=== PATIENT | male | born 1955 | race Caucasian/White ===

== ENCOUNTER 2016-12-19 08:21 | Emergency (ER) | payer MEDICARE, MEDICAID ==
[~2016-12-19] VITALS: Ht 175.3 cm; Wt 74.8 kg
[~2016-12-19 08:21] MED LIST: ASPIRIN 325MG325 MG PO; ASPIRIN 81MG TA81 MG PO; CIPRO 500MG TA500 MG PO; CLOPIDOGREL75 M2 PO; DIAZEPAM2 MG PO; DICLOFENAC 50MG50 MG PO; ERY-TAB 250MG250 MG PO; FLAGYL 500MG.500 MG PO; HYDROCO/APAP TAB 5-3 PO; HYDROCODONE-APA1 TA1 PO; HYDROCODONE-APA1 TA2 PO; IBU600 MG PO; KEFLEX 500MG.500 MG PO; LIPITOR80 M1 PO; LISINOPRIL2.5 M1 PO; LORTAB 5/500 501 TAB PO; MEDROL 4MG. DOSE4 MG PO; METOPROLOL25 MG PO; MOBIC7.5 MG PO; NITROGLYCERIN0.4 M1 SL; NOMEDS *; PROAIR HFA0.09 MG/AC IH; PROVENTIL0.09 MG/A1 IH; VALIUM 5MG TABLE5 MG PO; VENTOLIN H0.09 MG/AC IH; VOLTAREN75 MG PO; ZITHROMAX Z-PA250 M1 PO
[2016-12-19] MEDS ORDERED: PROAIR HFA0.09 MG/AC IH (08:32)
[2016-12-19] MEDS ORDERED: LEVOTHYROXIN0.025 M1 PO (08:34)
[2016-12-19] MEDS ORDERED: OMEPRAZOLE20 MG PO (08:35)
[2016-12-19] MEDS ORDERED: AMITRIPTYLINE 225 MG PO (08:37)
[2016-12-19] MEDS ORDERED: GABAPENTIN100 MG PO (08:38)
[2016-12-19 08:58] LABS: LYMPH # 4.1 K/mm3 (0.7-4.5); LYMPH % 41.9 % (10-50)
[2016-12-19 09:02] LABS: HEMOGLOBIN 16.7 g/dL (14.1-18.0)
--- NOTE | 2016-12-19 09:06 | Emergency Room Report ---
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 N Clinical Suspician of Infection? N Mental Status: 1 - Regular (Normal Baseline) Sepsis Risk:Low Sepsis Risk Have you (or family members/close friends) recently traveled outside the [place]? N If Yes, where/when: Have you had exposure to infectious disease within the past month? N TB? Other? Specify: Patient feeling lightheaded when standing since getting up this morning. No fever, no vomiting, no syncope, no chest pain, no congestion; baseline strabismus on right since childhood; takes Plavix and aspirin for hx stents. No palpitations. PCP is Dr. Batista, and patient no longer receiving Lortab from his PCP for chronic pain syndrome. He has not been to see his PCP since that time, and is currently not taking his daily medications. ALLERGIES Coded Allergies: Penicillins (12/19/16) Home Medications Active Scripts Nitroglycerin 0.4 MG SL Q5MINP 10 Days Prov: 10/18/14 Reported Medications ASPIRIN (Aspirin) 81 MG PO DAILY ATORVASTATIN CALCIUM (Lipitor 80MG) 80 MG PO QHS Metoprolol Tartrate (Metoprolol) 25 MG PO BID Lisinopril 2.5 MG PO DAILY Albuterol Sulfate (Proair Hfa) 1 PUFF IH Q6HP PRN COPD #9 Levothyroxine Sodium (Levothyroxine 0.025MG) 0.025 MG PO DAILY 30 Days Omeprazole (Omeprazole 20MG) 20 MG PO DAILY 30 Days Amitriptyline Hcl (Amitriptyline) 25 MG PO QHS 30 Days Gabapentin (Gabapentin 100MG) 100 MG PO QHS 30 Days CLOPIDOGREL BISULFATE (Clopidogrel) 75 MG PO DAILY #90 History Medical History General CAD? No Angina: Yes MO: Yes Hypertension? Yes Hyperlipidemia? Yes CHF? No DVT? No PE? No COPD? No Asthma? Yes Anemia? No GERD? No Gastric ulcers? No GI Bleed? No Hernia? No Thyroid Problems? No Hypothyroidism? No CVA? No Seizures? No Diabetes? No Insulin Dependent: No Insulin Pump: No Home FSBS? No Renal Insuffiency? No End Stage Renal Disease? No UTI? No Stones? No BPH? No GB Disease: No Nephritic Syndrome? No Asplenia? No Hepatitis? No Sickle Cell Disease? No Arthritis? No Migraines? No Cataracts? No Glaucoma? No MRSA? No HIV? No TB? No Anxiety? No Depression? No Cancer? No More? No Immunization Hx DT/Tetanus 1-4 YRS Surgical Hx Previous Surgery?Y RIGHT EYE LHAND SURGERY FROM INJURY CARDIAC STENTS X 2 Family History Family Hx Diabetes Yes CAD Yes Hypertension Yes Hyperlipidemia Yes Cancer Yes TB Yes Social History Smoking Hx Smoker: Current Every Day Smoker Tobacco: Yes Type Cigarettes Packs/day < 1 Pack Alcohol Alcohol: No Review of Systems All Other Systems Reviewed and Negative Psychiatric/Neurological see HPI, pre-existing deficit Physical Exam Vital Signs Vital Signs Date Time Temp Pulse Resp B/P Pulse O2 O2 Flow FiO2 Ox Delivery Rate 12/19 0941 69 159/92 12/19 0941 61 145/83 12/19 0940 69 24 159/92 97 12/19 0823 97.8 76 24 154/94 95 General Appearance normal appearance, WD/WN, no apparent distress Eye Exam - bilateral eye normal exam (baseline strabismus, R eye), bilateral eye PERRL, bilateral eye EOMI Ear, Nose, Throat hearing grossly normal, normal ENT inspection, normal pharynx (mostly edentulous ) Neck normal inspection, non-tender, supple, full range of motion Respiratory Status Yes: trachea midline, chest symmetrical, non tender chest. No: respiratory distress, tender on palpation, use of accessory muscles, pain on inspiration, pain on expiration, productive cough, non productive cough. Lung Sounds bilateral: normal breath sounds, lungs clear. 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 No Results/Orders Laboratory Tests 12/19/16 1000: Urine Color YELLOW, Urine Appearance CLEAR, Urine pH 6.0, Ur Specific [place] 1.020, Urine Protein NEGATIVE, Urine Ketones NEGATIVE, Urine Blood NEGATIVE, Urine Nitrate NEGATIVE, Urine Bilirubin NEGATIVE, Urine Urobilinogen 0.2, Ur Leukocyte Esterase NEGATIVE, Urine WBC 3-5, Ur Squamous Epith Cells 3-5, Urine Bacteria 1+, Urine Mucus 3+, Urine Glucose NEGATIVE 12/19/16 0805: Sodium 139, Potassium 3.7, Chloride 103, Carbon Dioxide 25, BUN 16, Creatinine 1.2, Estimated Creat Clear 68, Estimated GFR (MDRD) 62, Glucose 138 H, Calcium 9.0, Total Bilirubin 0.3, AST 15, ALT 19, Alkaline Phosphatase 103, Troponin I < 0.02, Total Protein 8.0, Albumin 4.0, Globulin 4.0 H, Albumin/Globulin Ratio 1.0 L, WBC 9.8, RBC 5.90, Hgb 16.7, Hct 49.8, MCV 84.5, RDW 12.8, Plt Count 273 , MPV 7.6, Gran % 47.5, Gran # 4.7, Lymphocytes % 41.9, Monocytes % 5.7, Eosinophils % 4.0, Basophils % 0.9, Lymphocytes # 4.1, Monocytes # 0.6, Eosinophils # 0.4, Basophils # 0.1, PUBS MCHC 33.5, MCH 28.3 Current Medication Orders Sig/Darvin Start time Last Medication Dose Route Stop Time Status Admin Sodium Chloride 1,000 ML .STK-MED ONE 12/19 854 DC IV Sodium Chloride 10 ML PRN PRN 12/19 844 AC IV 12/20 840 Sodium Chloride 1,000 ML .Q8H 12/19 844 AC 12/19 IV 12/19 Sodium Chloride 10 ML PRN PRN 12/19 844 AC IV 12/20 842 Orders Procedure Date/time Status DIET-NOTHING BY MOUTH 12/19 L Active ELECTROCARDIOGRAM REQUEST 12/[address] HEAD REQ 12/19 841 Complete IV SALINE LOCK 12/19 841 Active ORTHOSTATIC B/P 12/19 841 Active URINALYSIS/COMPLETE 12/19 841 Complete TROPONIN I 12/19 841 Complete CBC WITH AUTO DIFF 12/19 841 Complete CHEM 12 PROFILE 12/19 841 Complete CM/EKG CM/EKG EKG rate, NSR, rhythm, no evid. of ischemic chgs, no ectopy, normal QRS, normal [place], normal EKG (poor R w prog seen 10/28/16) XRAY/CT/US XRAY/CT/US XRAY chest XR interpretation by reviewed by me (report reviewed) Xray Results normal/NAD, no infiltrates (old granulomatous changes), normal lung inflation abhi CT head CT interpretation by reviewed by me, discussed w/radiologist (t/c from radiologist) Time results known: 913 CT Results normal/NAD (chronic mastoiditis ), frontal atrophy Departure Departure Time of Disposition 1022 Disposition DC Home or Self Care(routine) Clinical Impression Primary Impression: Mastoiditis Qualifiers: Laterality: unspecified laterality Qualified Code: H70.90 - Unspecified mastoiditis, unspecified ear Condition STABLE Referrals Lester KIRKLAND,Ashok Philip (PCP/Family) Patient Instructions DI for Mastoiditis -- Child Additional Instructions Levaquin; see Dr. Batista or one of his nurse practititioners in one week for recheck and for med refills as determined by your PCP. Discharge Counseling Counseled pt/family regarding diagnosis, test results, medications/RX, home care, follow up needs Prescriptions Current Visit Scripts Levofloxacin (Levaquin 500MG) 500 MG PO DAILY #7 TAB ED Critical Care Critical Care No at 1026
[2016-12-19 09:08] LABS: BUN 16 mg/dL (7-18)
[2016-12-19 09:09] LABS: GFR (ESTIMATED) 62 ML/MIN (>60)
--- NOTE | 2016-12-19 09:18 | RADIOLOGY REPORT PS360 ---
CT HEAD W/O CONTRAST COMPARISON: CT scan of brain noncontrast 01/03/2015 HISTORY: Patient woke up dizzy this a.m. TECHNIQUE: Multiaxial scans obtained from base skull to the vertex and were performed without IV contrast. FINDINGS: The base of skull normal except for findings of chronic mastoiditis left side. The internal auditory canals appear normal bilaterally. The ventricular system is normal. The sylvian fissures are somewhat prominent in the cortical sulci are prominent over the frontal lobes. There is no ischemic infarct or bleed and there are no extra-axial fluid collections. The bony calvarium appears intact. IMPRESSION: Findings of mild bifrontal cortical atrophy basely unchanged the previous exam, no acute intracranial pathology noted
--- NOTE | 2016-12-19 09:25 | RADIOLOGY REPORT PS360 ---
CHEST(2 VIEWS-NOT PORTABLE) COMPARISON: Portable upright chest 10/28/2016 HISTORY: Dizziness TECHNIQUE: PA and lateral chest FINDINGS: There is borderline emphysematous changes with mild hyperexpansion lung perez. I see no infiltrate. There are calcified hilar nodes bilaterally and there are a couple of calcified right granulomata in right perihilar region. Cardiac size is normal and the vascularity is normal. 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
[2016-12-19 10:07] LABS: URINE BILIRUBIN - DIPSTICK NEGATIVE (NEG); URINE BLOOD NEGATIVE (NEG)
[2016-12-19] MEDS ORDERED: LEVAQUIN500 MG PO (10:25)
[2016-12-19 11:17] VITALS: BP 159/92
--- OUTSIDE RECORDS SUMMARY | 2016-12-21 19:33 | External Medical Summary Rpt ---
Author Author , BAHMAN Lennon BAHMAN Address Unknown Phone [email or web address] Team Providers Care Commodities Broker Name Role Phone HILARIO DOUGLAS, Unavailable Unavailable HILARIO DOUGLAS BAILEY Unavailable Unavailable AMARIS LAIRD Unavailable Unavailable MAGI ALTAMIRANO MD, Unavailable Unavailable LISANDRA ALTAMIRANO MD [facility] Unavailable Unavailable [facility], [facility] JOSE FIORE, Unavailable Unavailable JOSE FIORE [facility] Jose Breen MD, Unavailable Unavailable LEANDRO Clark MD Unavailable Unavailable JR BRAVO ROE, Unavailable Unavailable JR BRAVO DURAN GAINEY Unavailable Unavailable LOUISA JERONIMO GIL, Unavailable Unavailable JERONIMO GIL [facility] Unavailable Unavailable INC, [facility] Unavailable Unavailable HOSPITAL P, [facility], Unavailable Unavailable [facility] Unavailable Unavailable [facility], [facility] Unavailable Unavailable MEDICAL G, [facility] CORBY TAVAREZ JR, JR Unavailable Unavailable CORBY HENDERSON DWI, CORBY Unavailable Unavailable JR DWI JAVIER ROBERT, Unavailable Unavailable JAVIER ROBERT [facility], Unavailable [facility]available [facility], [facility] SCIFRES ANG, SCIFRES Unavailable Unavailable ANG KARLA MAT, Unavailable Unavailable KARLA MAT SOKAN, HILLARY O, Unavailable Unavailable SOKAN, HILLARY O SOTINGEANU, Unavailable Unavailable JUNOU TAMMI MCFARLAND, Unavailable Unavailable TAMMI MCFARLAND Continuity of Care Document - 06-18-2007 through 2016 Problems Code Diagnosis DOS Provider Status I10 ESSENTIAL 10-28-2016 [facility]YPERTEN[facility] N I252 OLD 10-28-2016 [facility] MYOCARDIAL [facility] P R0602 SHORTNESS 10-28-2016 [place] [facility] R071 CHEST PAIN 10-28-2016 [facility], BREATHING [facility] R079 CHEST PAIN 10-28-2016 [place] [facility] Z720 TOBACCO USE 10-28-2016 [facility] P Z8249 FAMILY HX 10-28-2016 [facility] ISCHEMIC [facility] HRT DZ OTH INC DZ CIRC SYSTEM E785 HYPERLIPIDE 10-09-2016 [facility]IO [facility] UNSPECIFIED INC I119 HYPERTENSIV 10-09-2016 [facility] E HEART [facility] DISEASE INC WITHOUT HEART FAILURE I209 ANGINA 10-09-2016 [facility]IS [facility] UNSPECIFIED INC I2510 A[facility]D [place] 10-09-2016 [facility] CORONARY [facility] ARTERY W/O INC ANGINA [place] [id number] PINGUECULIT 02-24-2016 [facility] R5383 OTHER 12-21-2015 [facility] FATIGUE [facility] INC I208 OTHER FORMS 12-20-2015 [facility] OF ANGINA [facility] [place] INC M1990 UNSPECIFIED 09-07-2015 [facility] OSTEOARTHRI GROUP TIS UNSPECIFIED SITE M545 LOW BACK 09-07-2015 [facility] PAIN PHYSIC[facility]ANS GROUP N23013 OTHER LONG 09-07-2015 [facility] TERM [facility] CURRENT INC DRUG THERAPY I422 OTHER 07-08-2015 [facility] HYPERTROPHI [facility] C INC CARDIOMYOPA THY I5020 UNSPECIFIED 07-08-2015 [facility] SYSTOLIC [facility] CONGESTIVE INC HEART FAILURE 49607 UNSPEC HTN 01-04-2015 [facility] DISEASE [facility] WITHOUT O HEART FAIL 412 OLD 01-04-2015 [facility] MYOCARDIAL [facility] INFARCTION [facility] O 31396 COR 01-04-2015 [facility] ATHEROSLERO LAR UNSPEC CONSULTANTS TYPE VESSEL O [place] T 4254 OTHER 01-04-2015 [facility] PRIMARY LAR CARDIOMYOPA CONSULTANTS [place] O 2724 OTHER AND 11-24-2014 [facility] UNSPECIFIED [facility] INC HYPERLIPIDE MARIO 4280 CONGESTIVE 11-24-2014 [facility] HEART [facility] FAILURE INC UNSPECIFIED 4019 UNSPECIFIED 10-20-2014 [facility] ESSENTIAL [facility] HYPERTENSIO INC N 4139 OTHER AND 10-20-2014 [facility] UNSPECIFIED [facility] ANGINA INC [place] 496 CHRONIC 10-18-2014 [facility], OBSTRUCTION [facility] NEC 19909 ESOPHAGEAL 10-18-2014 [place] REFLUX [facility] P 25294 CHEST PAIN 10-18-2014 [facility] UNSPECIFIED [facility]YSICIANS, [facility] 30121 OTHER CHEST 10-18-2014 [facility] 7862 COUGH 09-13-2014 [facility] 97599 CORONARY 06-30-2014 [facility] [place] [facility] CORONARY ARTERY 69376 UNSPECIFIED 06-30-2014 [facility] HEART MEDICAL G FAILURE 4149 UNSPECIFIED 05-04-2014 [facility] CHRONIC PHYSICIANS ISCHEMIC GROUP HEART DISEASE 3674 PRESBYOPIA 03-12-2014 [facility] 63674 UNSPECIFIED 03-12-2014 [facility] 2449 UNSPECIFIED 03-05-2014 [facility] HYPOTHYROID INC ISM 7231 CERVICALGIA 02-12-2014 [facility] INC 7242 LUMBAGO 02-12-2014 [facility] INC 71008 DIAB W/O 02-04-2014 [facility] COMP TYPE [facility] II/UNS NOT INC STATED UNCNTRL 2859 UNSPECIFIED 02-04-2014 [facility] ANEMIA [facility] INC 99214 OSTEOARTHRO 08-19-2013 [facility] S UNSPEC PHYSICIANS WHETHER GROUP GEN/LOC UNSPEC SITE 0539 HERPES 06-10-2013 [facility]ER PHYS[facility]IANS WITHOUT GROUP MENTION OF COMPLICATIO N 1101 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 Hospital 401.9 401.9 05-15-2013 [place] HYPERTENSIO [facility] NOS Hospital 493.90 493.90 05-15-2013 [place] ASTHMA, [facility] UNSPECIFIED Hospital 521.00 521.00 05-15-2013 [place] UNSPEC [facility] DENTAL Hospital CARIES 786.59 786.59 10-30-2012 [place] CHEST PAIN [facility] 49192 UNSPECIFIED 12-19-2010 [facility] SITE OF [facility] ANKLE INC SPRAIN AND STRAIN 8830 OPEN WOUND 08-30-2009 [facility]ER [facility] WITHOUT INC MENTION COMPLICATIO N 93547 ASTHMA 02-04-2009 VENANCIO DOUGLAS WITH STATUS ASTHMATICUS 7245 UNSPECIFIED 02-04-2009 ARNOLD, BACKACHE HILARIO W 39956 ABDOMINAL 11-26-2008 [place] [facility] UNSPECIFIED [facility] 30224 UNSPECIFIED 09-30-2008 [place] [facility] 56204 ACUTE 09-30-2008 [facility] GINGIVITIS [facility] PLAQUE INC INDUCED 5269 UNSPECIFIED 09-30-2008 [place] DISEASE OF EMERGENCY [facility] 4660 ACUTE 04-09-2008 [facility] BRONCHITIS [facility] INC 2162 BENIGN 10-22-2007 [facility] NEOPLASM OF [facility] INC EAR&EXTERNA L AUDITORY CANAL 85057 ASTHMA, 09-25-2007 [facility] UNSPECIFIED [facility] , INC UNSPECIFIED STATUS 83720 OTHER 06-18-2007 [facility] [place] [address] SHORTNESS 06-18-2007 [facility] PROF SERV H70.90 UNSPECIFIED MASTOIDITIS , UNSPECIFIED EAR R07.9 CHEST PAIN, UNSPECIFIED Allergies, Adverse Reactions, Alerts Type Drug Allergy Adverse Reaction to Substance Substance Reaction Severity Penicillin Unknown Unknown Penicillin G Unknown Unknown Medications Na ND Rx Da Fi Fi Am Da Di Ph RX Ph St me C No te ll ll ou ys ag ar # ys at rm s nt no ma ic us Or Da si cy ia de te s n re d KE 00 12 0 No TO 40 -2 RO 93 7- Lo LA 79 20 ng C 60 13 er 60 1 Ac MG ti /2 ve ML AL LI 00 12 0 No DO 05 -2 CA 48 7- Lo IN 50 20 ng E 01 13 er 2% 6 Ac ti SC ve OU S 15 ML UD C LI 00 12 0 No DO 05 -2 CA 48 7- Lo IN 50 20 ng E 01 13 er 2% 6 Ac ti SC ve OU S 15 ML UD C Sa 63 06 0 No li 80 -1 ne 70 3- Lo 10 20 ng Fl 07 13 er us 5 h Ac 10 ti ML ve Sy ri ng e 63 06 0 No PI 73 -1 RI 90 3- Lo N 43 20 ng 81 40 13 er 1 MG Ac ti CH ve EW AB LE TA BL ET GI 12 06 0 No 32 -1 CO 22 3- Lo CK 22 20 ng TA 22 13 er IL 2 Ac 60 ti ML ve UD C PA 51 06 0 No NT 07 -1 OP 90 3- Lo RA 05 20 ng ZO 12 13 er LE 0 Ac SO ti D ve DR 40 MG TA B Sa 63 06 0 No li 80 -1 ne 70 3- Lo 10 20 ng Fl 07 13 er us 5 h Ac 10 ti ML ve Sy ri ng e GI 12 06 0 No 32 -1 CO 22 3- Lo CK 22 20 ng TA 22 13 er IL 2 Ac 60 ti ML ve UD C HE 00 04 0 No PA 40 -0 RI 97 3- Lo N- 76 20 ng D5 10 13 er W 3 25 Ac ,0 ti 00 ve UN IT /5 00 ML Sa 63 04 0 No li 80 -0 ne 70 3- Lo 10 20 ng Fl 07 13 er us 5 h Ac 10 ti ML ve Sy ri ng e He 00 04 0 No pa 40 -0 ri 91 3- Lo n 40 20 ng 5, 23 13 er 00 1 0 Ac Un ti it ve s/ Ml Sy ri ng e BR 00 04 0 No IL 18 -0 IN 60 3- Lo TA 77 20 ng 73 13 er 90 9 Ac MG ti ve TA BL ET IN 00 04 0 No TE 08 -0 GR 51 3- Lo IL 17 20 ng IN 70 13 er 2 20 Ac 0 ti MG ve /1 00 ML AL Vital Signs 05-15-2013 15:33 Name Value Interpretat Reference Comment ion Range Body 98.9 [degF] Temperature BP 89 mm[Hg] Diastolic BP Systolic 131 mm[Hg] Heart 95 /min Rate/Pulse O2% 97 % Respiratory 20 /min Rate 10-30-2012 12:00 Name Value Interpretat Reference Comment ion Range BP 66 mm[Hg] Diastolic BP Systolic 124 mm[Hg] Heart 66 /min Rate/Pulse O2% 97 % Respiratory 20 /min Rate 10-30-2012 10:15 Name Value Interpretat Reference Comment ion Range Body 98.2 [degF] Temperature BP 83 mm[Hg] Diastolic BP Systolic 146 mm[Hg] Heart 73 /min Rate/Pulse O2% 99 % Respiratory 20 /min Rate Weight 0 [oz_av] Measured Weight 72.576 kg Measured 08-20-2012 12:45 Name Value Interpretat Reference Comment ion Range Body 97.6 [degF] Temperature BP 66 mm[Hg] Diastolic BP Systolic 135 mm[Hg] Heart 93 /min Rate/Pulse O2% 97 % Respiratory 22 /min Rate 08-20-2012 12:30 Name Value Interpretat Reference Comment ion Range Body 97.6 [degF] Temperature 08-20-2012 11:59 Name Value Interpretat Reference Comment ion Range BP 65 mm[Hg] Diastolic BP Systolic 129 mm[Hg] Heart 93 /min Rate/Pulse O2% 98 % Respiratory 22 /min Rate Results Labs Lab Lab Date Result Refere Interp Status Commen Order Detail nces retati t Range on Urinalysis dipstick W Reflex Microscopic panel in Urine (12-19-2016 10:00) Bacteri 1+ O complet a 017 ed [Presen 10:00 ce] in Urine sedimen t by Light microsc opy Mucus 3+ NONE complet [Presen 017 ed ce] in 10:00 Urine sedimen t by Light microsc opy Epithel 3-5 OCC complet ial 017 ed cells.s 10:00 quamous [Presen ce] in Urine sedimen t by Microsc opy high power field Leukocy 3-5 O complet shalini 017 wbc/hpf ed [#/volu 10:00 me] in Urine Urinalysis dipstick W Reflex Microscopic panel in Urine (12-19-2016 10:00) Appeara CLEAR CLEAR complet nce of 017 ed Urine 10:00 Bilirub NEGATIV NEG complet in 017 E ed [Presen 10:00 ce] in Urine by Test strip Erythro NEGATIV NEG complet cytes 017 E ed [Presen 10:00 ce] in Urine Color YELLOW YELLOW complet of 017 ed Urine 10:00 Ketones NEGATIV NEG complet 017 E ed [Presen 10:00 ce] in Urine by Automat ed test strip Mucus NEGATIV NEG complet [Presen 017 E ed ce] in 10:00 Urine sedimen t by Light microsc opy Nitrite NEGATIV NEG complet 017 E ed [Presen 10:00 ce] in Urine by Test strip Urobili 0.2 NEG complet nogen 017 ed [Presen 10:00 ce] in Urine by Test strip COMPREHENSIVE METABOLIC PANEL (10-30-2012 10:30) Glucose 109 74-106 complet 013 mg/dL ed Bld-mCn 10:30 c BUN 10-30-2 12 7-18 complet Bld-mCn 013 mg/dL ed c 10:30 Creat 10-30-2 1.1 0.8-1.3 complet SerPl-m 013 mg/dL ed Cnc 10:30 ESTIMAT 10-30-2 76 50-200 complet ED 013 ML/MIN ed CREATIN 10:30 INE CLEARAN CE GFR 69 Greater complet (ESTIMA 013 ML/MIN than ed GEMA) 10:30 60 Sodium 10-30-2 139 136-145 complet SerPl-s 013 mmoL/L ed Cnc 10:30 Potassi 4.1 3.5-5.1 complet um 013 mmoL/L ed SerPl-s 10:30 Cnc Chlorid 10-30- 103 98-107 complet e 013 mmoL/L ed SerPl-s 10:30 Cnc CO2 28 21.0-32 complet SerPl-s 013 mmoL/L .0 ed Cnc 10:30 Calcium 10-30-2 8.9 8.5-10. complet 013 mg/dL 1 ed SerPl-m 10:30 Cnc Prot 2 7.8 6.4-8.2 complet SerPl-m 013 gm/dL ed Cnc 10:30 Albumin 10-30-2 4.1 3.4-5.0 complet 013 gm/dL ed SerPl-m 10:30 Cnc Globuli 10-30-2 3.7 1.3-3.2 complet n 013 gm/dL ed Ser-mCn 10:30 c Albumin 10-30-2 1.1 UNK 1.1-1.8 complet /Glob 013 ed SerPl-m 10:30 Rto Bilirub 10-30-2 0.3 0.2-1.0 complet 013 mg/dL ed SerPl-m 10:30 Cnc AST 10-30-2 15 U/L 15-37 complet SerPl-c 013 ed Cnc 10:30 ALT 10-30-2 40 U/L 30-65 complet SerPl-c 013 ed Cnc 10:30 ALP 10-30-2 112 U/L 50-136 complet SerPl-c 013 ed Cnc 10:30 CBC with AUTO DIFF (10-30-2012 10:30) WBC # 13-2 8.1 4.8-10. complet Bld 013 K/MM3 8 ed Auto 10:30 RBC # 06-13-2 5.99 4.6-6.2 complet Bld 013 M/mm3 ed Auto 10:30 Hgb 06-13-2 16.5 14.1-18 complet Bld-mCn 013 g/dL .0 ed c 10:30 Hct Fr 06-13-2 50.3 % 42.0-52 complet Bld 013 .0 ed 10:30 MCV RBC 06-13-2 83.9 fl 82.2-97 complet 013 .8 ed 10:30 MCH RBC 06-13-2 27.5 pg 27-31.2 complet Qn 013 ed Auto 10:30 MEAN 06-13-2 32.8 31.8-35 complet CORPUSC 013 g/dl .4 ed ULAR 10:30 HGB CONC RDW RBC -13-2 14.6 % 11.5-17 complet Auto 013 .5 ed 10:30 Platele 06-13-2 280 142-424 complet t Bld 013 K/mm3 ed Ql 10:30 Manual MEAN 06-13-2 7.3 fl 7.4-10. complet PLATELE 013 4 ed T 10:30 VOLUME Granulo 06-13-2 57.3 % 37.0-80 complet cytes 013 .0 ed Fr Bld 10:30 Auto LYMPH % 06-13-2 34.3 % 10-50 complet 013 ed 10:30 Monocyt 06-13-2 4.8 % 1.7-9.3 complet es Fr 013 ed Bld 10:30 Auto Eosinop 06-13-2 2.6 % 0.1-12. complet hil Fr 013 0 ed Bld 10:30 Auto Basophi 06-13-2 1.0 % 0.1-2.0 complet ls Fr 013 ed Bld 10:30 Auto Granulo 06-13-2 4.6 1.3-8.0 complet cytes # 013 K/mm3 ed Bld 10:30 Auto Lymphoc 06-13-2 2.8 0.7-4.5 complet ytes Fr 013 K/mm3 ed Bld 10:30 Auto Monocyt 06-13-2 0.4 0.1-1.0 complet es # 013 K/mm3 ed Bld 10:30 Auto Eosinop 06-13-2 0.2 0.0-0.4 complet hil # 013 K/mm3 ed Bld 10:30 Auto Basophi 10-30-2 0.1 0-0.2 complet ls # 013 K/MM3 ed Bld 10:30 Auto COMPREHENSIVE METABOLIC PANEL (08-20-2012 11:10) Glucose 132 74-106 complet 013 mg/dL ed Bld-mCn 11:10 c BUN 08-20-2 13 7-18 complet Bld-mCn 013 mg/dL ed c 11:10 Creat 08-20-2 1.2 0.8-1.3 complet SerPl-m 013 mg/dL ed Cnc 11:10 ESTIMAT 08-20-2 63 50-200 complet ED 013 ML/MIN ed CREATIN 11:10 INE CLEARAN CE GFR 62 Greater complet (ESTIMA 013 ML/MIN than ed GEMA) 11:10 60 Sodium 08-20- 138 136-145 complet SerPl-s 013 mmoL/L ed Cnc 11:10 Potassi 2 4.0 3.5-5.1 complet um 013 mmoL/L ed SerPl-s 11:10 Cnc Chlorid 08-20-2 101 98-107 complet e 013 mmoL/L ed SerPl-s 11:10 Cnc CO2 08-20-2 26 21.0-32 complet SerPl-s 013 mmoL/L .0 ed Cnc 11:10 Calcium 08-20-2 9.1 8.5-10. complet 013 mg/dL 1 ed SerPl-m 11:10 Cnc Prot 08-20-2 7.9 6.4-8.2 complet SerPl-m 013 gm/dL ed Cnc 11:10 Albumin 03-2 3.9 3.4-5.0 complet 013 gm/dL ed SerPl-m 11:10 Cnc Globuli 08-20-2 4.0 1.3-3.2 complet n 013 gm/dL ed Ser-mCn 11:10 c Albumin 08-20-2 1.0 UNK 1.1-1.8 complet /Glob 013 ed SerPl-m 11:10 Rto Bilirub 08-20-2 0.6 0.2-1.0 complet 013 mg/dL ed SerPl-m 11:10 Cnc AST 04-03-2 14 U/L 15-37 complet SerPl-c 013 ed Cnc 11:10 ALT 04-03-2 28 U/L 30-65 complet SerPl-c 013 ed Cnc 11:10 ALP 04-03-2 108 U/L 50-136 complet SerPl-c 013 ed Cnc 11:10 CBC with AUTO DIFF (08-20-2012 11:10) WBC # 04-03-2 10.8 4.8-10. complet Bld 013 K/MM3 8 ed Auto 11:10 RBC # 04-03-2 6.28 4.6-6.2 complet Bld 013 M/mm3 ed Auto 11:10 Hgb 04-03-2 17.2 14.1-18 complet Bld-mCn 013 g/dL .0 ed c 11:10 Hct Fr 04-03-2 53.1 % 42.0-52 complet Bld 013 .0 ed 11:10 MCV RBC 04-03-2 84.5 fl 82.2-97 complet 013 .8 ed 11:10 MCH RBC 04-03-2 27.4 pg 27-31.2 complet Qn 013 ed Auto 11:10 MEAN 04-03-2 32.4 31.8-35 complet CORPUSC 013 g/dl .4 ed ULAR 11:10 HGB CONC RDW RBC 04-03-2 14.1 % 11.5-17 complet Auto 013 .5 ed 11:10 Platele 04-03-2 329 142-424 complet t Bld 013 K/mm3 ed Ql 11:10 Manual MEAN 04-03-2 7.6 fl 7.4-10. complet PLATELE 013 4 ed T 11:10 VOLUME Granulo 04-03-2 46.2 % 37.0-80 complet cytes 013 .0 ed Fr Bld 11:10 Auto LYMPH % 04-03-2 44.3 % 10-50 complet 013 ed 11:10 Monocyt 04-03-2 5.7 % 1.7-9.3 complet es Fr 013 ed Bld 11:10 Auto Eosinop 04-03-2 3.0 % 0.1-12. complet hil Fr 013 0 ed Bld 11:10 Auto Basophi 04-03-2 0.8 % 0.1-2.0 complet ls Fr 013 ed Bld 11:10 Auto Granulo 04-03-2 5.0 1.3-8.0 complet cytes # 013 K/mm3 ed Bld 11:10 Auto Lymphoc 04-03-2 4.8 0.7-4.5 complet ytes Fr 013 K/mm3 ed Bld 11:10 Auto Monocyt 04-03-2 0.6 0.1-1.0 complet es # 013 K/mm3 ed Bld 11:10 Auto Eosinop 04-03-2 0.3 0.0-0.4 complet hil # 013 K/mm3 ed Bld 11:10 Auto Basophi 04-03-2 0.1 0-0.2 complet ls # 013 K/MM3 ed Bld 11:10 Auto Procedures Procedure DOS Code Location Performer Comment BLOOD 08571 DANIELA SUAREZ COUNT 7 [facility] COMPLETE INC INC AUTO&[place] [address] D[address]Z TROPONIN 7 [facility] QUANTITAT INC INC FRANCISCO ECG 89626 DANIELA TAVAREZ JR ROUTINE 7 [facility] W/LEAST P 12 LDS I&[place] [address] DANIELA SUAREZ AMYLASE 7 [facility] INC INC CREATINE 64229 DANIELA SUAREZ KINASE MB 7 [facility] FRACTION INC INC ONLY COMPREHEN 13329 DANIELA SUAREZ SIVE 7 [facility] METABOLIC INC INC PANEL RADIOLOGI 19933 DANIELA SUAREZ C [address] [facility] EXAMINATI INC INC ON CHEST [place] FRONTAL CREATINE 27283 DANIELA SUAREZ KINASE [address] [facility] [place] [address] DANIELA SUAREZ LIPASE 7 [facility] INC INC ECG 63524 DANIELA SUAREZ ROUTINE 7 [facility] ECG INC INC W/LEAST 12 LDS TRCG ONLY W/O I&R ECG 72968 DANIELA SUAREZ ROUTINE 7 [facility] ECG INC INC W/LEAST 12 LDS TRCG ONLY W/O I&R OPHTH 78617 [facility] 6 [facility] XM&EVAL [place] COMPRHNSV ESTAB PT 1/> COLLECTIO 70144 DANIELA DANIELA N VENOUS 6 [facility] BLOOD INC INC VENIPUNCT URE BASIC 37116 DANIELA SUAREZ METABOLIC 6 [facility] PANEL INC INC CALCIUM TOTAL HEPATIC 22664 DANIELA SUAREZ FUNCTION 6 [facility] PANEL INC INC LIPID 53793 DANIELA SUAREZ PANEL 6 [facility] INC INC BLOOD 77498 DANIELA SUAREZ COUNT 6 [facility] COMPLETE INC INC AUTO&AUTO DIFRNTL WBC ECG 97466 DANIELA SUAREZ ROUTINE 6 [facility] ECG INC INC W/LEAST 12 LDS TRCG ONLY W/O I&R ECG 40609 DANIELA SUAREZ ROUTINE 6 [facility] ECG INC INC W/LEAST 12 LDS TRCG ONLY W/O I&R DRUG TST G0477 DANIELA SUAREZ PRESUMP;C 6 [facility] PBL BEING INC INC READ DC OPT OBV ONLY ECG 36487 DANIELA SUAREZ ROUTINE 6 [facility] ECG INC INC W/LEAST 12 LDS TRCG ONLY W/O I&R ECG 07442 DANIELA SUAREZ ROUTINE 5 [facility] ECG INC INC W/LEAST 12 LDS TRCG ONLY W/O I&R ECG 71588 CARDIOVAS KARLA ROUTINE 5 CULAR MAT ECG CONSULTAN W/LEAST TS O 12 LDS I&R ONLY HEPATIC 20248 DANIELA SUAREZ FUNCTION 5 [facility] PANEL INC INC BLOOD 20852 DANIELA SUAREZ COUNT 5 [facility] COMPLETE INC INC AUTO&AUTO DIFRNTL WBC LIPID 38563 DANIELA SUAREZ PANEL 5 [facility] INC INC BASIC 44686 DANIELA SUAREZ METABOLIC 5 [facility] [place] [address] DANIELA SUAREZ FREE 5 [facility] [address] DANIELA SUAREZ THYROID 5 [facility] STIMULATI INC INC NG HORMONE TSH COLLECTIO 35326 DANIELA SUAREZ N VENOUS 5 [facility] BLOOD INC INC VENIPUNCT URE ECG 76403 CARDIOVAS KARLA ROUTINE 5 CULAR MAT ECG CONSULTAN W/LEAST TS O 12 LDS I&R ONLY ECG 80833 DANIELA SUAREZ ROUTINE 5 [facility] ECG INC INC W/LEAST 12 LDS TRCG ONLY W/O I&R ECG 05381 DANIELA SUAREZ ROUTINE 5 [facility] ECG INC INC W/LEAST 12 LDS TRCG ONLY W/O I&R ECG 58638 CARDIOVAS KARLA ROUTINE 5 CULAR MAT ECG CONSULTAN W/LEAST TS O 12 LDS I&R ONLY RADIOLOGI 13585 [facility] C EXAM 5 MEDICAL MAGI CHEST 2 IMAGING VIEWS ASS FRONTAL&L ATERAL ECG 86741 DANIELA TAVAREZ JR ROUTINE 5 [facility] W/LEAST P 12 LDS I&R ONLY RADIOLOGI 93343 [facility] C EXAM 5 MEDICAL MAGI CHEST 2 IMAGING VIEWS ASS FRONTAL&L ATERAL ECHO 05897 [facility] R-T 4 MEDICAL ALI 2D SERV W/WOM-MOD FOUNDATIO E COMPL N SPEC&COLR D OPHTH 97269 [facility] 4 VISION [facility] XM&EVAL [facility] PT 1/> VST CYANOCOBA 03655 DANIELA SUAREZ LIZZIE 4 [facility] VITAMIN INC INC B-12 [place] [address] DANIELA SUAREZ THYROID 4 [facility] STIMULATI INC INC NG HORMONE TSH RADEX 65056 DANIELA SUAREZ SPINE 4 [facility] CERVICAL INC INC 4 OR 5 VIEWS 3D 77405 DANIELA SUAREZ RENDERING 4 [facility] W/INTERP INC INC & POSTPROCE SS SUPERVISI ON MRI 98274 DANIELA SUAREZ SPINAL 4 [facility] CANAL INC INC LUMBAR W/O CONTRAST MATERIAL RADIOLOGI 03152 DANIELA SUAREZ C EXAM 4 [facility] CHEST 2 INC INC VIEWS FRONTAL&L ATERAL RADEX 90599 DANIELA SUAREZ SPINE 4 [facility] LUMBOSACR INC INC AL MINIMUM 4 VIEWS BLOOD 65679 DANIELA SUAREZ COUNT 4 [facility] COMPLETE INC INC AUTO&AUTO DIFRNTL WBC HEMOGLOBI 65275 DANIELA YEPEZON N 4 [facility] GLYCOSYLA INC INC GEMA A1C COLLECTIO 22796 DANIELA SUAREZ N VENOUS 4 [facility] BLOOD INC INC VENIPUNCT URE CYANOCOBA 72295 DANIELA SUAREZ LIZZIE 4 [facility] VITAMIN INC INC B-12 [place] [address] DANIELA SUAREZ THYROID 4 [facility] STIMULATI INC INC NG HORMONE TSH COMPREHEN 84679 DANIELA SUAREZ SIVE 4 [facility] [place] [address] DANIELA SUAREZ THYROXINE 4 [facility] [place] [address] [facility]ANIELA SUAREZ FOLIC 4 [facility] ACID INC INC SERUM THERAPEUT 99221 [facility] JEFFERY IC 4 PHYSICIAN LOUISA PROPHYLAC S GROUP TIC/DX INJECTION SUBQ/IM INJECTION J1040 [facility] JEFFERY 4 PHYSICIAN LOUISA METHYLPRE S GROUP DNISOLONE ACETATE 80 MG HEMOGLOBI 02992 DANIELA SUAREZ N 4 [facility] GLYCOSYLA INC INC GEMA A1C LIPID 64187 DANIELA SUAREZ PANEL 4 [facility] INC INC BLOOD 03885 DANIELA SUAREZ COUNT 4 [facility] COMPLETE INC INC AUTO&AUTO DIFRNTL WBC COMPREHEN 44052 DANIELA SUAREZ SIVE 4 [facility] [place] [address] DANIELA SUAREZ THYROXINE 4 [facility] [place] [address] DANIELA SUAREZ THYROID 4 [facility] STIMULATI INC INC NG HORMONE TSH CREATINE 41620 DANIELA SUAREZ KINASE MB 3 [facility] FRACTION INC INC ONLY COMPREHEN 84670 DANIELA SUAREZ SIVE 3 [facility] METABOLIC INC INC PANEL RADIOLOGI 32244 DANIELA SUAREZ C 3 [facility] EXAMINATI INC INC ON CHEST [place] FRONTAL CREATINE 45768 DANIELA SUAREZ KINASE 3 [facility] TOTAL INC INC BLOOD 53817 DANIELA SUAREZ COUNT 3 [facility] COMPLETE INC INC AUTO&[place] [address] DANIELA SUAREZ TROPONIN 3 [facility] QUANTITAT INC INC FRANCISCO RHYTHM 63186 DANIELA SUAREZ ECG 1-3 3 [facility] LEADS INC INC TRACING ONLY W/O I&R ECG 55442 DANIELA SUAREZ ROUTINE 3 [facility] ECG INC INC W/LEAST 12 LDS TRCG ONLY W/O I&R RADEX 69061 DANIELA SUAREZ ELBOW 1 [facility] COMPLETE INC INC MINIMUM 3 [place] [address] DANIELA SUAREZ AMYLASE 9 [facility] INC INC BLOOD 05250 DANIELA SUAREZ COUNT 9 [facility] COMPLETE INC INC AUTO&AUTO DIFRNTL WBC URNLS DIP 07733 DANIELA SUAREZ 9 [facility] STICK/TAB INC INC LET REAGENT AUTO MICROSCOP Y RADEX ABD 57281 YOSEF BLAIR 9 MEDICAL JOSE AQT ABD IMAGING W/S/E/D ASSOCIATE VIEWS [address] [place] [address] DANIELA SUAREZ LIPASE 9 [facility] INC INC COMPREHEN 94052 DANIELA SUAREZ SIVE 9 [facility] METABOLIC INC INC PANEL COMPREHEN 75414 [facility] 8 [facility] METAB[place] 12483 DANIELA SUAREZ THER 8 [facility] PROPH/DX INC INC 1ST >1 HR URNLS DIP 88606 [facility]ELA [facility] 8 [facility] STICK/TAB INC INC LET REAGENT AUTO MICROSCOP Y BLOOD 37391 DANIELA SUAREZ COUNT 8 [facility] COMPLETE INC INC AUTO&AUTO DIFRNTL WBC RADIOLOGI 52685 DANIELA SU[facility]Z C EXAM 8 [facility] CHEST 2 INC INC VIEWS FRONTAL&L ATERAL THER 77813 DANIELA SUAREZ PROPH/DX 8 [facility] NJX EA INC INC SEQL IV PUSH SBST/DRUG IAADI 55052 DANIELA SUAREZ INFLUENZA 8 [facility] B VIRUS INC INC IAADI 74887 DANIELA SUARE[facility] INFFLUENZ 8 [facility] A A VIRUS INC INC PRESSURIZ 36023 DANIELA SUAREZ ED/NONPRE 8 [facility] SSURIZED INC INC INHALATIO N TREATMENT PRESSURIZ 56853 DANIELA YEPEZON ED/NONPRE 8 [facility] SSURIZED INC INC INHALATIO N TREATMENT CREATINE 31211 DANIELA SUAREZ KINASE MB 8 [facility] FRACTION INC INC ONLY BLOOD 57807 DANIELA SUAREZ COUNT 8 [facility] COMPLETE INC INC AUTO&[place] [address] DANIELA SUAREZ TROPONIN 8 [facility] QUANTITAT INC INC FRANCISCO RADIOLOGI 36725 FLORIDA Rodrigo [facility] EXAMINATI IMAGING ON CHEST ASSOCIATE SINGLE S VIEW FRONTAL CREATINE 70655 DANIELA SUAREZ KINASE 8 [facility] TOTAL INC INC BASIC 18843 DANIELA SUAREZ METABOLIC 8 [facility] PANEL INC INC CALCIUM TOTAL Encounters Encounter Start End Date Code Location Performer Type Date EMERGENCY 99722 MARTÍN FRAIRE DEPT 7 7 PHYSICIAN U VISIT S, [facility] HIGH SEVERITY& THREAT FUNJ EMERGENCY 71818 DANIELA 7 7 [facility] T VISIT HIGH/URGE NT SEVERITY [facility]OSP[facility] - 7 7 [facility] - OTHER 6 6 [facility] DANIELA - 6 6 [facility] - 6 6 [facility] T OFFICE 86817 [facility] 6 6 PHYSICIAN [place] T VISIT S GROUP 25 MINUTES HOSPITAL DANIELA [facility] OTHER 6 6 [facility] DANIELA - 6 6 [facility] DANIELA - 5 5 [facility] OFFICE 36216 [facility] OUTPATIEN 5 5 CULAR MAT T VISIT CONSULTAN 40 TS O MINUTES HOSPITAL [facility]ANIELA - 5 5 [facility] T OFFICE 85690 [facility] KARLA OUTPATIEN 5 5 CULAR MAT T VISIT CONSULTAN 25 TS O MINUTES HOSPITAL DANIELA - 5 5 [facility] T OFFICE 12434 CARDIOVAS KARLA OUTPATIEN 5 5 CULAR MAT T VISIT CONSULTAN 40 TS O MINUTES HOSPITAL DANIELA - 5 5 [facility] EMERGENCY 41886 MARTÍN DURAN, 5 5 PHYSICIAN JR BRAVO SUERO S, [facility] T VISIT HIGH/URGE NT SEVERITY OFFICE 58362 [facility] 5 [facility] T VISIT MEDICAL 25 G MINUTES OFFICE 16983 [facility] JEFFERY OUTPATIEN 4 4 PHYSICIAN [place] T VISIT S GROUP 10 MINUTES HOSPITAL DANIELA - 4 4 [facility]EN [facility] DANIELA [facility] OTHER 4 4 [facility] DANIELA - 4 4 [facility]EN [facility] DANIELA - 4 4 [facility] OFFICE 09265 [facility] JEFFERY OUTPATIEN 4 4 PHYSICIAN [place] T VISIT S GROUP 15 MINUTES OFFICE 70714 [facility] JE[facility] OUTPATIEN 4 4 PHYSICIAN [place] T VISIT S GROUP 15 MINUTES OFFICE 74917 [facility] OUTPATIEN 4 4 PHYSICIAN [place] T VISIT S GROUP 15 MINUTES HOSPITAL DANIELA - OTHER 4 4 [facility] INC Emergency MCKAY ALTAMIRANO MD (ER) 3 15:20 3 15:35 [facility] Emergency MCKAY Breen MD (ER) 3 10:44 3 12:10 [facility] DANIELA - 3 3 [facility] OUTPATIEN INC T EMERGENCY 59031 DANIELA 3 3 [facility] DEPARTMEN INC T VISIT HIGH/URGE NT SEVERITY Emergency MCKAY MCFARLAND MD (ER) 3 11:46 3 13:20 [facility] DANIELA - 1 1 [facility] OUTPATIEN INC T EMERGENCY 54214 D[facility]ELA 1 1 [facility] DEPART[facility] INC T VISIT LOW/MODER SEVERITY EMERGENCY 17003 D[facility]ELA 0 0 [facility] INC T VISIT LOW/MODER SEVERITY [facility]OSPITAL DANIELA - 0 0 [facility] OUT[facility]IEN INC T OFFICE 70705 MISAEL DOUGLAS, DAVID 9 9 HILARIO Michaud T VISIT 15 MINUTES EMERGENCY 96126 JENNIFER GIL, ANNAT 9 9 EMERGENCY JERONIMO S VISIT SERVICES HIGH SEVERITY& ASSOCIATE THREAT S FUNJ EMERGENCY 90015 DANIELA 9 9 [facility] DE[facility] INC T VISIT HIGH/URGE NT SEVERITY [facility]OSPITAL D[facility]A - 9 9 [facility] T [facility]OSPITAL D[facility]ELA - 9 9 [facility] OUT[facility] INC T EMERGENCY 15558 JENNIFER GALAN, 9 9 [facility] DEPARTMEN [facility] O T VISIT MODERATE ASSOCIATE SEVERITY S EMERGENCY 02885 D[facility]ELA 9 9 [facility] DEPART[facility] INC T VISIT LIMITED/M INOR PROB EMERGENCY 75752 DANIELA 8 8 [facility] DEPART[facility] INC T VISIT HIGH/URGE NT SEVERITY HOSPITAL DANIELA - 8 8 [facility] OUTPATIEN INC T HOSPITAL [facility]ANIELA - 8 8 [facility] OUTPATIEN INC T EMERGENCY 46968 DANIELA 8 8 [facility] VISIT [facility]/M INOR PROB EMERGENCY 05820 DANIELA 8 8 [facility] DEPARTMEN INC T VISIT LIMITED/M INOR PROB HOSPITAL DANIELA - 8 8 [facility] OUTPATIEN INC T EMERGENCY 99504 DANIELA 8 8 [facility] DEPARTMEN INC T VISIT HIGH/URGE NT SEVERITY HOSPITAL DANIELA - 8 8 [facility] OUTPATIEN INC T
--- OUTSIDE RECORDS SUMMARY | 2016-12-21 19:33 | External Medical Summary Rpt ---
Author Author , BAHMAN Lennon BAHMAN Address Unknown Phone [email or web address] Care Team Providers Care Cushion Stuffer Name Role Phone HILARIO DOUGLAS, Unavailable Unavailable HILARIO DOUGLAS BAILEY Unavailable Unavailable AMARIS LAIRD Unavailable Unavailable MAGI ALTAMIRANO MD, Unavailable Unavailable LISANDRA ALTAMIRANO MD [facility] Unavailable Unavailable [facility], [facility] JOSE FIORE, Unavailable Unavailable JOSE FIORE [facility] Un[facility] Un[facility], [facility] Jose Breen MD, Unavailable Unavailable LEANDRO Clark MD Unavailable Unavailable JR BRAVO ROE, Unavailable Unavailable JR BRAVO DURAN GAINEY Unavailable Unavailable LOUISA JERONIMO GIL, Unavailable Unavailable JERONIMO GIL [facility] Unavailable Unavailable INC, [facility] Unavailable Unavailable HOSPITAL P, [facility], Unavailable Unavailable [facility] Unavailable Unavailable IM[facility]ING [facility], [facility] Unavailable Unavailable MEDICAL G, [facility] MEDICAL G CORBY TAVAREZ JR, [...] PHYSICIANS, HYPERTENSIO PLLC N I252 OLD 10-28-2016 [facility] P R0602 SHORTNESS 10-28-2016 [place] [facility] R071 CHEST PAIN 10-28-2016 [facility] ON PHYSICIANS, BREATHING [facility] R079 CHEST PAIN 10-28-2016 [place] [facility]PECIFIED [facility] Z720 TOBACCO USE 10-28-2016 [facility] P Z8249 FAMILY HX 10-28-2016 [facility] ISCHEMIC [facility] HRT DZ OTH INC DZ CIRC SYSTEM E785 HYPERLIPIDE 10-09-2016 [facility] MARIO [facility] UNSPECIFIED INC I119 HYPERTENSIV 10-09-2016 [facility] E HEART [facility] DISEASE INC WITHOUT HEART FAILURE I209 ANGINA 10-09-2016 [facility] PECT[facility]IS [facility] UNSPECIFIED INC I2510 ASHD FLANDREAU 10-09-2016 [facility] CORONARY [facility] ARTERY W/O INC ANGINA [place] S70601 PINGUECULIT 02-24-2016 [facility] R5383 OTHER 12-21-2015 [facility] FATIGUE [facility] INC I208 OTHER FORMS 12-20-2015 [facility] OF ANGINA [facility] PECTORIS INC M1990 UNSPECIFIED 09-07-2015 [facility] OSTEOARTHRI GROUP TIS UNSPECIFIED SITE M545 LOW BACK 09-07-2015 [facility] PAIN PHYSICIANS GROUP [id number] OTHER LONG 09-07-2015 [facility] TERM [facility] CURRENT INC DRUG THERAPY I422 OTHER 07-08-2015 [facility] HYPERTROPHI [facility] C INC CARDIOMYOPA THY I5020 UNSPECIFIED 07-08-2015 [facility] SYSTOLIC [facility] CONGESTIVE INC HEART FAILURE 90020 UNSPEC HTN 01-04-2015 [facility] HE[facility] DISEASE [facility]ANTS WITHOUT O HEART FAIL 412 OLD 01-04-2015 [facility] MYOCARDIAL LAR INFARCTION CONSULTANTS O 88849 COR 01-04-2015 [facility] ATHEROSLERO LAR UNSPEC CONSULTANTS TYPE VESSEL O FLANDREAU/BRYANT T 4254 OTHER 01-04-2015 [facility] PRIMARY LAR CARDIOMYOPA CONSULTANTS MIGNON O 2724 OTHER AND 11-24-2014 [facility] UNSPECIFIED [facility] INC HYPERLIPIDE MARIO 4280 CONGESTIVE 11-24-2014 [facility] HEART [facility] FAILURE INC UNSPECIFIED 4019 UNSPECIFIED 10-20-2014 [facility] ESSENTIAL [facility] HYPERTENSIO INC N 4139 OTHER AND 10-20-2014 [facility] UNSPECIFIED [facility] ANGINA INC PECTORIS 496 CHRONIC 10-18-2014 [facility] AIRWAY PHYSICIANS, OBSTRUCTION [facility] NEC 30585 ESOPHAGEAL 10-18-2014 [facility] REFLUX [facility] P 80679 CHEST PAIN 10-18-2014 [facility] UNSPECIFIED PHYSICIANS, [facility] 18565 OTHER CHEST 10-18-2014 [facility] 7862 COUGH 09-13-2014 [facility] 88134 CORONARY 06-30-2014 [facility] OSIS FL[facility] G CORONARY ARTERY 29377 UNSPECIFIED 06-30-2014 [facility] HEART MEDICAL G FAILURE 4149 UNSPECIFIED 05-04-2014 [facility] CHRONIC PHYSICIANS ISCHEMIC GROUP HEART DISEASE 3674 PRESBYOPIA 03-12-2014 [facility] 85567 UNSPECIFIED 03-12-2014 [facility] 2449 UNSPECIFIED 03-05-2014 [facility] HYPOTHYROID INC ISM 7231 CERVICALGIA 02-12-2014 [facility] INC 7242 LUMBAGO 02-12-2014 [facility] INC 47735 DIAB W/O 02-04-2014 [facility] COMP TYPE [facility] II/UNS NOT INC STATED UNCNTRL 2859 UNSPECIFIED 02-04-2014 [facility] ANEMIA [facility] INC 83246 OSTEOARTHRO 08-19-2013 [facility] S UNSPEC PHYSICIANS WHETHER GROUP GEN/LOC UNSPEC SITE 0539 HERPES 06-10-2013 [facility] ZOSTER PHYSICIANS WITHOUT GROUP MENTION OF COMPLICATIO N 1101 DERMATOPHYT 06-01-2013 [facility] OSIS OF PHYSICIANS NAIL GROUP V5861 LONG-TERM 05-22-2013 [facility] (CURRENT) [facility] USE OF INC ANTICOAGULA NTS 305.1 305.1 05-15-2013 [facility] TOBACCO USE [facility] Hospital 401.9 401.9 05-15-2013 [facility] HYPERTENSIO [facility] NOS Hospital 493.90 493.90 05-15-2013 [facility] ASTHMA, [facility] UNSPECIFIED Hospital 521.00 521.00 05-15-2013 [facility] UNSPEC [facility] DENTAL Hospital CARIES 786.59 786.59 10-30-2012 [facility] CHEST PAIN [facility] Hospital 22981 UNSPECIFIED 12-19-2010 [facility] SITE OF [facility] ANKLE INC SPRAIN AND STRAIN 8830 OPEN WOUND 08-30-2009 [facility] FINGER [facility] WITHOUT INC MENTION COMPLICATIO N 33878 ASTHMA 02-04-2009 VENANCIO DOUGLAS WITH STATUS ASTHMATICUS 7245 UNSPECIFIED 02-04-2009 ARNOLD, BACKACHE HILARIO W 04535 ABDOMINAL 11-26-2008 [facility], EMERGENCY UNSPECIFIED SERVICES [facility]ITE [facility] 31951 UNSPECIFIED 09-30-2008 [facility] DENTAL [facility]Y [facility] 16265 ACUTE 09-30-2008 [facility] GINGIVITIS [facility] PLAQUE INC INDUCED 5269 UNSPECIFIED 09-30-2008 J[facility]ER DISEASE OF EMERGENCY [facility] 4660 ACUTE 04-09-2008 [facility] BRONCHITIS [facility] INC 2162 BENIGN 10-22-2007 [facility] NEOPLASM OF [facility] INC EAR&EXTERNA L AUDITORY CANAL 90237 ASTHMA, 09-25-2007 [facility] UNSPECIFIED [facility] , INC UNSPECIFIED STATUS 18567 OTHER 06-18-2007 [facility] [place] [place] [address] SHORTNESS 06-18-2007 [facility] PROF SERV H70.90 UNSPECIFIED MASTOIDITIS [...] Procedure DOS Code Location Performer Comment BLOOD 80009 DANIELA SUAREZ COUNT 7 [facility] COMPLETE INC INC AUTO&[place] [address] DANIELA SUAREZ TROPONIN 7 [facility] QUANTITAT INC INC FRANCISCO ECG 15288 DANIELA TAVAREZ JR ROUTINE 7 [facility] W/LEAST P 12 LDS I&[place] [address] DANIELA SUAREZ AMYLASE 7 [facility] INC INC CREATINE 91506 DANIELA SUAREZ KINASE MB 7 [facility] FRACTION INC INC ONLY COMPREHEN 45058 DANIELA SUAREZ SIVE 7 [facility] METABOLIC INC INC PANEL RADIOLOGI 90718 DANIELA SUAREZ C 7 [facility] EXAMINATI INC INC ON CHEST SINGLE VIEW FRONTAL CREATINE 74916 DANIELA SUAREZ KINASE 7 [facility] [place] [address] DANIELA SUAREZ LIPASE 7 [facility] INC INC ECG 71455 DANIELA SUAREZ ROUTINE 7 [facility] ECG INC INC W/LEAST 12 LDS TRCG ONLY W/O I&R ECG 88365 DANIELA SUAREZ ROUTINE 7 [facility] ECG INC INC W/LEAST 12 LDS TRCG ONLY W/O I&R OPHTH 89209 [facility] 6 [facility] XM&EVAL [place] COMPRHNSV ESTAB PT 1/> COLLECTIO 75838 DANIELA DANIELA N VENOUS 6 [facility] BLOOD INC INC VENIPUNCT URE BASIC 38066 DANIELA SUAREZ METABOLIC 6 [facility] PANEL INC INC CALCIUM TOTAL HEPATIC 40212 DANIELA SUAREZ FUNCTION 6 [facility] PANEL INC INC LIPID 62441 DANIELA SUAERZ PANEL 6 [facility] INC INC BLOOD 79748 DANIELA SUAREZ COUNT 6 [facility] COMPLETE INC INC AUTO&AUTO DIFRNTL WBC ECG 76714 DANIELA SUAREZ ROUTINE 6 [facility] ECG INC INC W/LEAST 12 LDS TRCG ONLY W/O I&R ECG 91455 DANIELA SUAREZ ROUTINE 6 [facility] ECG INC INC W/LEAST 12 LDS TRCG ONLY W/O I&R DRUG TST G0477 DANIELA SUAREZ PRESUMP;C 6 [facility] PBL BEING INC INC READ DC OPT OBV ONLY ECG 84121 DANIELA SUAREZ ROUTINE 6 [facility] ECG INC INC W/LEAST 12 LDS TRCG ONLY W/O I&R ECG 81200 DANIELA SUAREZ ROUTINE 5 [facility] ECG INC INC W/LEAST 12 LDS TRCG ONLY W/O I&R ECG 96990 CARDIOVAS KARLA ROUTINE 5 CULAR MAT ECG CONSULTAN W/LEAST TS O 12 LDS I&R ONLY HEPATIC 00898 DANIELA SUAREZ FUNCTION 5 [facility] PANEL INC INC BLOOD 16746 DANIELA SUAREZ COUNT 5 [facility] COMPLETE INC INC AUTO&AUTO DIFRNTL WBC LIPID 19541 DANIELA SUAREZ PANEL 5 [facility] INC INC BASIC 16289 DANIELA SUAREZ METABOLIC 5 [facility] [place] [address] DANIELA SUAREZ FREE 5 [facility] [place] [address] DANIELA SUAREZ THYROID 5 [facility] STIMULATI INC INC NG HORMONE TSH COLLECTIO 86338 DANIELA SUAREZ N VENOUS 5 [facility] BLOOD INC INC VENIPUNCT URE ECG 29241 CARDIOVAS KARLA ROUTINE 5 CULAR MAT ECG CONSULTAN W/LEAST TS O 12 LDS I&R ONLY ECG 30887 DANIELA SUAREZ ROUTINE 5 [facility] ECG INC INC W/LEAST 12 LDS TRCG ONLY W/O I&R ECG 50655 DANIELA SUAREZ ROUTINE 5 [facility] ECG INC INC W/LEAST 12 LDS TRCG ONLY W/O I&R ECG 25082 CARDIOVAS KARLA ROUTINE 5 CULAR MAT ECG CONSULTAN W/LEAST TS O 12 LDS I&R ONLY RADIOLOGI 96994 [facility] C EXAM 5 MEDICAL MAGI CHEST 2 IMAGING VIEWS ASS FRONTAL&L ATERAL ECG 66940 DANIELA TAVAREZ JR ROUTINE 5 [facility] W/LEAST P 12 LDS I&R ONLY RADIOLOGI 89286 [facility] C EXAM 5 MEDICAL MAGI CHEST 2 IMAGING VIEWS ASS FRONTAL&L ATERAL ECHO [address] R-T 4 MEDICAL ALI 2D SERV W/WOM-MOD FOUNDATIO E COMPL N SPEC&COLR D OPHTH 81584 [facility] 4 [facility] XM&EVAL [facility] PT 1/> VST CYANOCOBA 10047 DANIELA SUAREZ LIZZIE 4 [facility] VITAMIN INC INC B-12 [place] [address] DANIELA SUAREZ THYROID 4 [facility] STIMULATI INC INC NG HORMONE TSH RADEX 43413 DANIELA SUAREZ SPINE 4 [facility] CERVICAL INC INC 4 OR 5 VIEWS 3D 52445 DANIELA SUAREZ RENDERING 4 [facility] W/INTERP INC INC & POSTPROCE SS SUPERVISI ON MRI 07367 DANIELA SUAREZ SPINAL 4 [facility] CANAL INC INC LUMBAR W/O CONTRAST MATERIAL RADIOLOGI 79124 DANIELA SUAREZ C EXAM 4 [facility] CHEST 2 INC INC VIEWS FRONTAL&L ATERAL RADEX 48414 DANIELA SUAREZ SPINE 4 [facility] LUMBOSACR INC INC AL MINIMUM 4 VIEWS BLOOD 28331 DANIELA SUAREZ COUNT 4 [facility] COMPLETE INC INC AUTO&AUTO DIFRNTL WBC HEMOGLOBI 96520 DANIELA YEPEZON N 4 [facility] GLYCOSYLA INC INC GEMA A1C COLLECTIO 58739 DANIELA SUAREZ N VENOUS 4 [facility] BLOOD INC INC VENIPUNCT URE CYANOCOBA 63870 DANIELA SUAREZ LIZZIE 4 [facility] VITAMIN INC INC B-12 [place] [address] DANIELA SUAREZ THYROID 4 [facility] STIMULATI INC INC NG HORMONE TSH COMPREHEN 33937 DANIELA SUAREZ SIVE 4 [facility] [place] [address] DANIELA SUAREZ THYROXINE 4 [facility] [place] [address] DANIELA SUAREZ FOLIC 4 [facility] ACID INC INC SERUM THERAPEUT 85955 [facility] JEFFERY IC 4 PHYSICIAN LOUISA PROPHYLAC S GROUP TIC/DX INJECTION SUBQ/IM INJECTION J1040 [facility] JEFFERY 4 PHYSICIAN [place] METHYLPRE S GROUP DNISOLONE ACETATE 80 MG HEMOGLOBI 37073 DANIELA SUAREZ N 4 [facility] GLYCOSYLA INC INC GEMA A1C LIPID 00904 DANIELA SUAREZ PANEL 4 [facility] INC INC BLOOD 92447 DANIELA SUAREZ COUNT 4 [facility] COMPLETE INC INC AUTO&AUTO DIFRNTL WBC COMPREHEN 44253 DANIELA SUAREZ SIVE 4 [facility] [place] [address] DANIELA SUAREZ THYROXINE 4 [facility] [place] [address] DANIELA SUAREZ THYROID 4 [facility] STIMULATI INC INC NG HORMONE TSH CREATINE 18834 DANIELA SUAREZ KINASE MB 3 [facility] FRACTION INC INC ONLY COMPREHEN 74905 DANIELA SUAREZ SIVE 3 [facility] METABOLIC INC INC PANEL RADIOLOGI 13504 DANIELA SUAREZ C 3 [facility] EXAMINATI INC INC ON CHEST SING[place] FRONTAL CREATINE 57998 DANIELA SUAREZ KINASE 3 [facility] TOTAL INC INC BLOOD 26957 DANIELA SUAREZ COUNT 3 [facility] COMPLETE INC INC AUTO&[place] [address] DANIELA SUAREZ TROPONIN 3 [facility] QUANTITAT INC INC FRANCISCO RHYTHM 94546 DANIELA SUAREZ ECG 1-3 3 [facility] LEADS INC INC TRACING ONLY W/O I&R ECG 75123 DANIELA SUAREZ ROUTINE 3 [facility] ECG INC INC W/LEAST 12 LDS TRCG ONLY W/O I&R RADEX 75186 DANIELA SUAREZ ELBOW 1 [facility] COMPLETE INC INC MINIMUM 3 [place] [address] DANIELA SUAREZ AMYLASE 9 [facility] INC INC BLOOD 39508 DANIELA SUAREZ COUNT 9 [facility] COMPLETE INC INC AUTO&AUTO DIFRNTL WBC URNLS DIP 95289 D[facility]ELA SUAREZ 9 [facility] STICK/TAB INC INC LET REAGENT AUTO MICROSCOP Y RADEX ABD 53999 YOSEF BLAIR 9 MEDICAL JOSE AQT ABD IMAGING W/S/E/D ASSOCIATE VIEWS [address] [place] [address] DANIELA SUAREZ LIPASE 9 [facility] INC INC COMPREHEN 60151 DANIELA SUAREZ SIVE 9 [facility] METABOLIC INC INC PANEL COMPREHEN 47264 DANIELA SUAREZ SIVE 8 [facility] [address] DANIELA SUAREZ THER 8 [facility] PROPH/DX INC INC 1ST >1 HR URNLS DIP 60225 DANIELA SUAREZ 8 [facility] STICK/TAB INC INC LET REAGENT AUTO MICROSCOP Y BLOOD 98593 DANIELA SUAREZ COUNT 8 [facility] COMPLETE INC INC AUTO&AUTO DIFRNTL WBC RADIOLOGI 55719 DANIELA SUAREZ C EXAM 8 [facility] CHEST 2 INC INC VIEWS FRONTAL&L ATERAL THER 24372 DANIELA SUAREZ PROPH/DX 8 [facility] NJX EA INC INC SEQL IV PUSH SBST/DRUG IAADI 89645 DANIELA SUAREZ INFLUENZA 8 [facility] B VIRUS INC INC IAADI 77889 DANIELA SUAREZ INFFLUENZ 8 [facility] A A VIRUS INC INC PRESSURIZ 15207 DANIELA SUAREZ ED/NONPRE 8 [facility] SSURIZED INC INC INHALATIO N TREATMENT PRESSURIZ 67094 DANIELA YEPEZON ED/NONPRE 8 [facility] SSURIZED INC INC INHALATIO N TREATMENT CREATINE 62348 DANIELA SUAREZ KINASE MB 8 [facility] FRACTION INC INC ONLY BLOOD 48356 DANIELA SUAREZ COUNT 8 [facility] COMPLETE INC INC AUTO&[place] [address] DANIELA SUAREZ TROPONIN 8 [facility] QUANTITAT INC INC FRANCISCO RADIOLOGI 23744 [place] [facility] EXAMINATI IMAGING ON CHEST ASSOCIATE SINGLE S VIEW FRONTAL CREATINE 47301 DANIELA SUAREZ KINASE 8 [facility] TOTAL INC INC BASIC 21172 DANIELA SUAREZ METABOLIC 8 [facility] PANEL INC INC CALCIUM TOTAL Encounters Encounter Start End Date Code Location Performer Type Date EMERGENCY 87277 MARTÍN FRAIRE DEPT 7 7 PHYSICIAN U VISIT S, [facility] HIGH SEVERITY& THREAT FUNJ EMERGENCY 79266 DANIELA 7 7 [facility] T VISIT HIGH/URGE NT SEVERITY HOSPITAL D[facility]A - 7 7 [facility] OUTPATIEN [facility] D[facility]ELA - 7 7 [facility] OUTPATIEN [facility] DANIELA [facility] OTHER 6 6 [facility] - 6 6 [facility] DANIELA - 6 6 [facility] T OFFICE 80937 [facility] 6 6 PHYSICIAN LOUISA T VISIT S GROUP 25 MINUTES HOSPITAL DANIELA - OTHER 6 6 [facility] DANIELA - 6 6 [facility] OUTPATIEN [facility] HOSPITAL DANIELA - 5 5 [facility] OUTPATIEN [facility] OFFICE 64128 CARDIOVAS KARLA OUTPATIEN 5 5 CULAR MAT T VISIT CONSULTAN 40 TS O MINUTES HOSPITAL DANIELA - 5 5 [facility]PATIEN [facility] T OFFICE 13193 CARDIOVAS KARLA OUTPATIEN 5 5 CULAR MAT T VISIT CONSULTAN 25 TS O MINUTES HOSPITAL DANIELA - 5 5 [facility]PATIEN [facility] T OFFICE 15879 CARDIOVAS KARLA OUTPATIEN 5 5 CULAR MAT T VISIT CONSULTAN 40 TS O MINUTES HOSPITAL DANIELA - 5 5 [facility] OUTPATIEN [facility] EMERGENCY 16859 MARTÍN DURAN, 5 5 PHYSICIAN JR BRAVO SUERO S, [facility] T VISIT HIGH/URGE NT SEVERITY OFFICE 91306 [facility] 5 5 [facility] T VISIT MEDICAL 25 G MINUTES OFFICE 21342 [facility] JEFFERY OUTPATIEN 4 4 PHYSICIAN LOUIAS T VISIT S GROUP 10 MINUTES HOSPITAL DANIELA - 4 4 [facility] OUTPATIEN [facility] DANIELA [facility] OTHER 4 4 [facility] DANIELA - 4 4 [facility] OUTPATIEN [facility] DANIELA - 4 4 [facility] OUTPATIEN [facility] OFFICE 32644 [facility] JEFFERY OUTPATIEN 4 4 PHYSICIAN LOUISA T VISIT S GROUP 15 MINUTES OFFICE 09731 [facility] JEFFERY OUTPATIEN 4 4 PHYSICIAN [place] T VISIT S GROUP 15 MINUTES OFFICE 67397 [facility] JEFFERY OUTPATIEN 4 4 PHYSICIAN [place]OUISA T VISIT S GROUP 15 MINUTES HOSPITAL DANIELA - OTHER 4 4 [facility] INC Emergency MCKAY ALTAMIRANO MD (ER) 3 15:20 3 15:35 [facility] MCKAY Breen MD (ER) 3 10:44 3 12:10 [facility] DANIELA - 3 3 [facility] OUTPATIEN INC T EMERGENCY 90167 DANIELA 3 3 [facility] DEPARTMEN INC T VISIT HIGH/URGE NT SEVERITY Emergency MCKAY MCFARLAND MD (ER) 3 11:46 3 13:20 [facility] DANIELA - 1 1 [facility] OUTPATIEN INC T EMERGENCY 01869 D[facility] 1 1 [facility] DEPARTMEN INC T VISIT LOW/MODER SEVERITY EMERGENCY 21397 D[facility]A 0 0 [facility] DEPARTMEN INC T VISIT LOW/MODER SEVERITY HOSPITAL DANIELA - 0 0 [facility] OUTPATIEN INC T OFFICE 23085 MISAEL DOUGLAS, DAVID 9 9 HILARIO Michaud T VISIT 15 MINUTES EMERGENCY 42467 JENNIFER GIL, ANNAT 9 9 EMERGENCY JERONIMO S VISIT SERVICES HIGH SEVERITY& ASSOCIATE THREAT S FUNJ EMERGENCY 49606 D[facility]A 9 9 [facility] DEPARTMEN INC T VISIT HIGH/URGE NT SEVERITY HOSPITAL DANIELA - 9 9 [facility] OUTPATIEN INC T HOSPITAL DANIELA - 9 9 [facility] OUTPATIEN INC T EMERGENCY 05548 JENNIFER GALAN, 9 9 EMERGENCY [facility] DEPARTMEN SERVICES O T VISIT MODERATE ASSOCIATE SEVERITY S EMERGENCY 33534 D[facility]A 9 9 [facility] DEPARTMEN INC T VISIT LIMITED/M INOR PROB EMERGENCY 94374 DANIELA 8 8 [facility] DEPARTMEN INC T VISIT HIGH/URGE NT SEVERITY HOSPITAL DANIELA - 8 8 [facility] OUTPATIEN INC T HOSPITAL DANIELA - 8 8 [facility] OUTPATIEN INC T EMERGENCY 87290 DANIELA 8 8 [facility] V[facility]/M INOR PROB EMERGENCY 29652 DANIELA 8 8 [facility] DEPARTMEN INC T VISIT LIMITED/M INOR PROB HOSPITAL DANIELA - 8 [address] [facility] OUTPATIEN INC T EMERGENCY [id number] DANIELA 8 8 [facility] DEPARTMEN INC T VISIT HIGH/URGE NT SEVERITY HOSPITAL DANIELA - 8 [address] [facility] OUTPATIEN INC T
--- OUTSIDE RECORDS SUMMARY | 2016-12-21 19:35 | External Medical Summary Rpt ---
Demographics Preferred Language Romansh Marital Status Unknown Bahai Affiliation Unknown Race Unknown Ethnic Group Unknown Author Author , BAHMAN RUGGIERO Address Unknown Phone Immunization Unable to retrieve immunization data due to connection failure with Immunization Registry. Please try again later.
--- OUTSIDE RECORDS SUMMARY | 2016-12-21 19:35 | External Medical Summary Rpt ---
Demographics Preferred Language Turkmen Marital Status Unknown Oriental Orthodox Affiliation Unknown Race Unknown Ethnic Group Unknown Author Author , BAHMAN RUGGIERO Address Unknown Phone Immunization Unable to retrieve immunization data due to connection failure with Immunization Registry. Please try again later.
--- OUTSIDE RECORDS SUMMARY | 2016-12-21 19:35 | External Medical Summary Rpt ---
Author Author , BAHMAN RUGGIERO Address Unknown Phone [email or web address] Team Providers Care Shredder Picker Name Role Phone HILARIO DOUGLAS, Unavailable Unavailable HILARIO DOUGLAS, AMARIS Unavailable Unavailable [facility] Unavailable Unavailable CON[facility]ANT[facility] O, [facility] MACARENA FIORE Unavailable Unavailable JOSE FIORE, Unavailable Unavailable JOSE FIORE [facility], [facility] LEANDRO CHONG Unavailable Unavailable JR BRAVO ROE, Unavailable Unavailable JR BRAVO DURAN GAINEY Unavailable Unavailable LOUISA JERONIMO GIL, Unavailable Unavailable JERONIMO GIL [facility] Unavailable Unavailable INC, [facility] Unavailable Unavailable HOSPITAL P, [facility], Unavailable Unavailable [facility] Un[facility], [facility] Unavailable Unavailable MEDICAL G, [facility] CORBY HENDERSON DWI, CORBY Unavailable Unavailable JR DWI [facility] Un[facility] Unavailable [facility], [facility] SCIJANNY BARR, SCIJANNY Unavailable Unavailable ANG KARLA MAT, Unavailable Unavailable KARLA MAT SOKAN, HILLARY O, Unavailable Unavailable SOKAN, HILLARY O SOTINGEANU, Unavailable Unavailable TAMMI FERNANDEZ, Unavailable Unavailable TAMMI MCFARLAND Purpose Continuity of Care Document - 06-18-2007 through 2016 Problems Code Diagnosis DOS Provider Status I10 ESSENTIAL 10-28-2016 [facility] HYPERTEN[facility]O PLL[facility] N I252 OLD 10-28-2016 [facility] P R0602 SHORTNESS 10-28-2016 [facility] R071 CHEST PAIN 10-28-2016 [facility] BREATHING [facility] R079 CHEST PAIN 10-28-2016 [facility] Z720 TOBACCO USE 10-28-2016 [facility] P Z8249 FAMILY HX 10-28-2016 [facility]SCHEMIC [facility] HRT DZ OTH INC DZ CIRC SYSTEM E785 HYPERLIPIDE 10-09-2016 [facility] MARIO [facility] UNSPECIFIED INC I119 HYPERTENSIV 10-09-2016 [facility] E HEART [facility] DISEASE INC WITHOUT HEART FAILURE I209 ANGINA 10-09-2016 [facility] PECTORIS [facility] UNSPECIFIED INC I2510 ASHD [place] 10-09-2016 [facility] CORONARY [facility] ARTERY W/O INC ANGINA PECTORIS L33421 PINGUECULIT 02-24-2016 [facility] R5383 OTHER 12-21-2015 [facility]UE [facility] INC I208 OTHER FORMS 12-20-2015 [facility] OF ANGINA [facility] PECTORIS INC M1990 UNSPECIFIED 09-07-2015 [facility] OSTEOARTHRI GROUP TIS UNSPECIFIED SITE M545 LOW BACK 09-07-2015 [facility] PAIN PHYSICIANS GROUP R38142 OTHER LONG 09-07-2015 [facility] TERM [facility] CURRENT INC DRUG THERAPY I422 OTHER 07-08-2015 [facility] HYPERTROPHI [facility] C INC CARDIOMYOPA THY I5020 UNSPECIFIED 07-08-2015 [facility] SYSTOLIC [facility] CONGESTIVE INC HEART FAILURE 24125 UNSPEC HTN 01-04-2015 [facility] HE[facility] DISEASE [facility] WITHOUT O HEART FAIL 412 OLD 01-04-2015 [facility] MYOCARDIAL LAR INFARCTION CONSULTANTS O 06777 COR 01-04-2015 [facility] ATHEROSLERO LAR UNSPEC CONSULTANTS TYPE VESSEL O [place]/BRYANT T 4254 OTHER 01-04-2015 [facility] PRIMARY LAR CARDIOMYOPA CONSULTANTS MIGNON Blankenship 2724 OTHER AND 11-24-2014 [facility] UNSPECIFIED [facility] INC HYPERLIPIDE MARIO 4280 CONGESTIVE 11-24-2014 [facility] HEART [facility] FAILURE INC UNSPECIFIED 4019 UNSPECIFIED 10-20-2014 [facility] ESSENTIAL [facility] HYPERTENSIO INC N 4139 OTHER AND 10-20-2014 [facility] UNSPECIFIED [facility] ANGINA INC PECTORIS 496 CHRONIC 10-18-2014 [facility], OBSTRUCTION PLLC NEC 17466 ESOPHAGEAL 10-18-2014 [facility] P 59896 CHEST PAIN 10-18-2014 [facility] UNSPEC[facility]IED [facility], PLLC 41143 OTHER CHEST 10-18-2014 [facility] 7862 COUGH 09-13-2014 [facility] 09340 CORONARY 06-30-2014 [facility] OSIS [place] MEDICAL G CORONARY ARTERY 42760 UNSPECIFIED 06-30-[address] [facility] HEART MEDICAL G FAILURE 4149 UNSPECIFIED 05-04-2014 [facility] CHRONIC PHYSICIANS ISCHEMIC GROUP HEART DISEASE 3674 PRESBYOPIA 03-12-2014 [facility] 38099 UNSPECIFIED 03-12-2014 [facility] 2379 UNSPECIFIED 03-05-2014 [facility] HYPOTHYROID INC ISM 7231 CERVICALGIA 02-12-2014 [facility] INC 7242 LUMBAGO 02-12-2014 [facility] INC 70575 DIAB W/O 02-04-2014 [facility] COMP TYPE [facility] II/UNS NOT INC STATED UNCNTRL 2859 UNSPECIFIED 02-04-2014 [facility] ANEMIA [facility] INC 50520 OSTEOARTHRO 08-19-2013 [facility] S UNSPEC PHYSICIANS WHETHER GROUP GEN/LOC UNSPEC SITE 0539 HERPES 06-10-2013 [facility] ZOSTER PHYSICIANS WITHOUT GROUP MENTION OF COMPLICATIO N 1101 DERMATOPHYT 06-01-2013 [facility] OSIS OF PHYSICIANS NAIL GROUP V5861 LONG-TERM 05-22-2013 [facility] (CURRENT) [facility] USE OF INC ANTICOAGULA NTS 91998 UNSPECIFIED 12-19-2010 [facility] ANKLE INC SPRAIN AND STRAIN 8830 OPEN WOUND 08-30-2009 [facility] FINGER [facility] WITHOUT INC MENTION COMPLICATIO N 02722 ASTHMA 02-04-2009 ARNEVETTE, UNSPECIFIED HILARIO W WITH STATUS ASTHMATICUS 7245 UNSPECIFIED 02-04-2009 MISAEL, BACKACHE HILARIO W 69630 ABDOMINAL 11-26-2008 JENNIFER PAIN, EMERGENCY UNSPECIFIED SERVICES [facility] 72060 UNSPECIFIED 09-30-2008 [place] [facility] 54332 ACUTE 09-30-2008 [facility] GINGIVITIS [facility] PLAQUE INC INDUCED 5269 UNSPECIFIED 09-30-2008 JENNIFER DISEASE OF EMERGENCY [facility] 4660 ACUTE 04-09-2008 [facility] BRONCHITIS [facility] INC 2162 BENIGN 10-22-2007 [facility] NEOPLASM OF [facility] INC EAR&EXTERNA L AUDITORY CANAL 06792 ASTHMA, 09-25-2007 [facility] UNSPECIFIED [facility] , INC UNSPECIFIED STATUS 87630 OTHER 06-18-2007 [facility] [place] [address] SHORTNESS 06-18-2007 [facility] PROF SERV Procedures Procedure [place] [address] DANIELA SUAREZ TROPONIN 7 [facility] QUANTITAT INC INC FRANCISCO BLOOD 31504 D[facility]ELA SUAREZ COUNT 7 [facility] COMPLETE INC INC AUTO&[place] [address] D[facility]ELA SUAREZ AMYLASE 7 [facility] INC INC CREATINE 50509 DANIELA SUAREZ KINASE MB 7 [facility] FRACTION INC INC ONLY CREATINE 32624 DANIELA DANIELA KINASE 7 [facility] [place] [place] [address] D[facility]ELA DANIELA LIPASE 7 [facility] INC INC RADIOLOGI 78795 GITAWally MACARENA C 7 MEDICAL EXAMINATI IMAGING ON CHEST ASS SINGLE VIEW FRONTAL COMPREHEN 46100 DANIELA SUAREZ SIVE 7 [facility] METABOLIC INC INC PANEL ECG 01677 DANIELA SUAREZ ROUTINE 7 [facility] ECG INC INC W/LEAST 12 LDS TRCG ONLY W/O I&R ECG 96090 [facility] ROUTINE 7 PHYSICIAN U ECG S, PLLC W/LEAST 12 LDS I&R ONLY ECG 21588 DANIELA SUAREZ ROUTINE 7 [facility] ECG INC INC W/LEAST 12 LDS TRCG ONLY W/O I&R OPHTH 22363 [facility] 6 [facility] COMPRHNSV ESTAB PT 1/> BASIC 01016 DANIELA SUAREZ METABOLIC 6 [facility] PANEL INC INC CALCIUM TOTAL LIPID 95823 DANIELA SUAREZ PANEL 6 [facility] INC INC COLLECTIO 42508 DANIELA SUAREZ N VENOUS 6 [facility] BLOOD INC INC VENIPUNCT URE BLOOD 96405 DANIELA SUAREZ COUNT 6 [facility] COMPLETE INC INC AUTO&AUTO DIFRNTL WBC HEPATIC 68941 DANIELA SUAREZ FUNCTION 6 [facility] PANEL INC INC ECG 61992 DANIELA SUAREZ ROUTINE 6 [facility] ECG INC INC W/LEAST 12 LDS TRCG ONLY W/O I&R ECG 65505 DANIELA SUAREZ ROUTINE 6 [facility] ECG INC INC W/LEAST 12 LDS TRCG ONLY W/O I&R DRUG TST G0477 DANIELA SUAREZ PRESUMP;C 6 [facility] PBL BEING INC INC READ DC OPT OBV ONLY ECG 76297 DANIELA SUAREZ ROUTINE 6 [facility] ECG INC INC W/LEAST 12 LDS TRCG ONLY W/O I&R ECG 06012 DANIELA SUAREZ ROUTINE 5 [facility] ECG INC INC W/LEAST 12 LDS TRCG ONLY W/O I&R ECG 36381 CARDIOVAS KARLA ROUTINE 5 CULAR MAT ECG CONSULTAN W/LEAST TS O 12 LDS I&R ONLY HEPATIC 51396 DANIELA SUAREZ FUNCTION 5 [facility] PANEL INC INC COLLECTIO 46533 DANIELA SUAREZ N VENOUS 5 [facility] BLOOD INC INC VENIPUNCT URE BASIC 23995 DANIELA SUAREZ METABOLIC 5 [facility] PANEL INC INC CALCIUM TOTAL BLOOD 90554 DANIELA SUAREZ COUNT 5 [facility] COMPLETE INC INC AUTO&[place] [address] DANIELA SUAREZ THYROID 5 [facility] STIMULATI [place] [address] DANIELA SUAREZ FREE 5 [facility] THYROXINE INC INC LIPID 56562 DANIELA SUAREZ PANEL 5 [facility] INC INC ECG 00790 DANIELA SUAREZ ROUTINE 5 [facility] ECG INC INC W/LEAST 12 LDS TRCG ONLY W/O I&R ECG 14138 CARDIOVAS KARLA ROUTINE 5 CULAR MAT ECG CONSULTAN W/LEAST TS O 12 LDS I&R ONLY ECG 29385 CARDIOVAS KARLA ROUTINE 5 CULAR MAT ECG CONSULTAN W/LEAST TS O 12 LDS I&R ONLY ECG 62323 DANIELA SUARZE ROUTINE 5 [facility] ECG INC INC W/LEAST 12 LDS TRCG ONLY W/O I&R RADIOLOGI 21554 [facility] C EXAM 5 MEDICAL MAGI CHEST 2 IMAGING VIEWS ASS FRONTAL&L ATERAL ECG 79120 DANIELA TAVAREZ JR ROUTINE 5 [facility] W/LEAST P 12 LDS I&R ONLY RADIOLOGI 11521 [facility] C EXAM 5 MEDICAL MAGI CHEST 2 IMAGING VIEWS ASS FRONTAL&L ATERAL ECHO 04762 DANIELA SUAREZ TTHRC R-T 4 [facility] 2D INC INC W/WOM-MOD E COMPL SPEC&COLR D OPHTH 14229 [facility] 4 VISION ANG XM&EVAL CENTER COMPRE NEW PT 1/> VST CYANOCOBA 19053 DANIELA SUAREZ LIZZIE 4 [facility] VITAMIN INC INC B-12 [place] [address] DANIELA SUAREZ THYROID 4 [facility] STIMULATI INC INC NG HORMONE TSH 3D 83760 DANIELA SUAREZ RENDERING 4 [facility] W/INTERP INC INC & POSTPROCE SS SUPERVISI ON RADEX 17568 DANIELA SUAREZ SPINE 4 [facility] LUMBOSACR INC INC AL MINIMUM 4 VIEWS MRI 91743 DANIELA SUAREZ SPINAL 4 [facility] CANAL INC INC LUMBAR W/O CONTRAST MATERIAL RADEX 61198 DANIELA SUAREZ SPINE 4 [facility] CERVICAL INC INC 4 OR 5 VIEWS RADIOLOGI 37434 DANIELA SUAREZ C EXAM 4 [facility] CHEST 2 INC INC VIEWS FRONTAL&[place] [address] DANIELA SUAREZ THYROXINE 4 [facility] TOTAL INC INC COMPREHEN 90049 DANIELA SUAREZ SIVE 4 [facility] METABOLIC INC INC PANEL CYANOCOBA 40253 DANIELA SUAREZ LIZZIE 4 [facility] VITAMIN INC INC B-12 [place] [address] DANIELA SUAREZ THYROID 4 [facility] STIMULATI INC INC NG HORMONE TSH COLLECTIO 80286 DANIELA SUAREZ N VENOUS 4 [facility] [place] [address] DANIELA SUAREZ FOLIC 4 [facility] ACID INC INC SERUM BLOOD 70543 DANIELA SUAREZ COUNT 4 [facility] COMPLETE INC INC AUTO&AUTO DIFRNTL WBC HEMOGLOBI 20413 DANIELA SUAREZ N 4 [facility] GLYCOSYLA INC INC GEMA A1C THERAPEUT 71101 [facility] IC 4 PHYSICIAN LOUISA PROPHYLAC S GROUP TIC/DX INJECTION SUBQ/IM INJECTION J1040 [facility] JEFFERY 4 PHYSICIAN LOUISA METHYLPRE S GROUP DNISOLONE ACETATE [address] [place] [address] DANIELA SUAREZ THYROXINE 4 [facility] TOTAL INC INC COMPREHEN 30445 DANIELA SUAREZ SIVE 4 [facility] METABOLIC INC INC PANEL HEMOGLOBI 49284 DANIELA SUAREZ N 4 [facility] GLYCOSYLA INC INC GEMA A1C BLOOD 65381 DANIELA SUAREZ COUNT 4 [facility] COMPLETE INC INC AUTO&AUTO DIFRNTL WBC LIPID 80704 DANIELA SUAREZ PANEL 4 [facility] [place] [address] DANIELA SUAREZ THYROID 4 [facility] STIMULATI INC INC NG HORMONE TSH CREATINE 98109 DANIELA SUAREZ KINASE MB 3 [facility] FRACTION INC INC ONLY BLOOD 56462 DNAIELA SUAREZ COUNT 3 [facility] COMPLETE INC INC AUTO&[place] [address] DANIELA SUAREZ TROPONIN 3 [facility] QUANTITAT INC INC FRANCISCO CREATINE 81796 DANIELA SUAREZ KINASE 3 [facility] TOTAL INC INC COMPREHEN 90246 DANIELA SUAREZ SIVE 3 [facility] METABOLIC INC INC PANEL ECG 78159 DANIELA SUAREZ ROUTINE 3 [facility] ECG INC INC W/LEAST 12 LDS TRCG ONLY W/O I&R RADIOLOGI 57136 DANIELA SUAREZ C 3 [facility] EXAMINATI INC INC ON CHEST SINGLE VIEW FRONTAL RHYTHM 47521 DANIELA SUAREZ ECG 1-3 3 [facility] LEADS INC INC TRACING ONLY W/O I&R RADEX 64573 DANIELA SUAREZ ELBOW 1 [facility] COMPLETE INC INC MINIMUM 3 VIEWS RADEX ABD 32377 DANIELA SUAREZ COMPL 9 [facility] AQT ABD INC INC W/S/E/D VIEWS 1 [place] [address] DANIELA SUAREZ LIPASE 9 [facility] INC INC BLOOD 16165 DANIELA SUAREZ COUNT 9 [facility] COMPLETE INC INC AUTO&AUTO DIFRNTL WBC URNLS DIP 79530 DANIELA SUAREZ 9 [facility] STICK/TAB INC INC [place] [address] DANIELA YEPEZON AMYLASE 9 [facility] INC INC COMPREHEN 05654 DANIELAWILLIAM SUAREZ SIVE 9 [facility] METABOLIC INC INC PANEL COMPREHEN 98132 DANIELA SUAREZ SIVE 8 [facility] METABOLIC INC INC PANEL URNLS DIP 97560 DANIELA DANIELA 8 [facility] STICK/TAB INC INC LET REAGENT AUTO MICROSCOP Y BLOOD 13532 DANIELA SUAREZ COUNT 8 [facility] COMPLETE INC INC AUTO&AUTO DIFRNTL WBC IAADI 52010 DANIELA SUAREZ INFLUENZA 8 [facility] B VIRUS INC INC IAADI 90981 DANIELA SUAREZ INFFLUENZ 8 [facility] A [place] VIRUS [place] N[place] 60413 DANIELA SUAREZ THER 8 [facility] PROPH/DX INC INC 1ST >1 HR THER 59400 DANIELA SUAREZ PROPH/DX 8 [facility] NJX EA INC INC SEQL IV PUSH SBST/DRUG RADIOLOGI 38801 Rodrigo BLAIR EXAM 8 MEDICAL JOSE CHEST 2 IMAGING VIEWS ASSOCIATE FRONTAL&L S ATERAL PRESSURIZ 88799 DANIELA SUAREZ ED/NONPRE 8 [facility] SSURIZED INC INC INHALATIO N TREATMENT PRESSURIZ 30685 DANIELA SUAREZ ED/NONPRE 8 [facility] SSURIZED INC INC INHALATIO N TREATMENT BASIC 41825 DANIELA SUAREZ METABOLIC 8 [facility] PANEL INC INC CALCIUM TOTAL RADIOLOGI 91642 DANIELA SUAREZ C 8 [facility] EXAMINATI INC INC ON CHEST SINGLE VIEW FRONTAL CREATINE 27027 DANIELA SUAREZ KINASE 8 [facility] [address] DANIELA SUAREZ TROPONIN 8 [facility] QUANTITAT INC INC FRANCISCO BLOOD 50632 DANIELA SUAREZ COUNT 8 [facility] COMPLETE INC INC AUTO&AUTO DIFRNTL WBC CREATINE 58130 DANIELA SUAREZ KINASE MB 8 [facility] FRACTION INC INC ONLY Encounters Encounter Start End Date Code Location Performer Type Date [facility] DANIELA - 7 7 [facility] OUTPATIEN [facility] EMERGENCY 82009 MART[facility] FRAIRE DEPT 7 7 PHYSICIAN U VISIT S, [facility] HIGH SEVERITY& THREAT FUNJ EMERGENCY 25629 DANIELA 7 7 [facility] T VISIT [facility]IGH/URGE NT SEVERITY [facility] DANIELA - 7 7 [facility] DANIELA [facility] OTHER 6 6 [facility] DANIELA - 6 6 [facility] - 6 6 [facility] 02537 [facility] PH[facility]IC[facility] [place] T VISIT S GROUP 25 MINUTES [facility] DANIELA [facility] OTHER 6 6 [facility] DANIELA - 6 6 [facility] DANI[facility]A - 5 5 [facility] T OFFICE 80910 CARDIOVAS KARLA OUTPATIEN 5 5 CULAR [facility] T VISIT CONSULTAN 40 TS O MINUTES [facility] DANIELA - 5 5 [facility] DANI[facility]A - 5 5 [facility] T OFFICE 45092 CARDIOVAS KARLA OUTPATIEN 5 5 [facility] T VISIT CONSULTAN 25 TS O MINUTES [facility]OSPITAL D[facility]ELA - 5 5 [facility] T OFFICE 32696 CARDIOVAS KARLA OUTPATIEN 5 5 [facility] T VISIT CONSULTAN 40 TS O MINUTES EMERGENCY 76430 MARTÍN ROGER, 5 5 PHYSICIAN JR CORDON DEPARTMEN S, [facility] T VISIT HIGH/URGE NT SEVERITY OFFICE 63957 [facility] OUTPATIEN 5 5 [facility] T VISIT MEDICAL 25 G MINUTES OFFICE 53539 [facility] JEFFERY OUTPATIEN 4 4 PHYSICIAN [place]ISA T VISIT S GROUP 10 MINUTES HOSPITAL DANIELA - 4 4 [facility] DANIELA [facility] OTHER 4 4 [facility] DANIELA - 4 4 [facility] DANIELA - 4 4 [facility] OFFICE 78912 [facility] JEFFERY OUTPATIEN 4 4 PHYSICIAN [place] T VISIT S GROUP 15 MINUTES OFFICE 57002 [facility] JEFFERY OUTPATIEN 4 4 PHYSICIAN [place] T VISIT S GROUP 15 MINUTES [facility] PHYSICIAN [place] T [facility]ISIT S GROUP 15 MINUTES HOSPITAL DANIELA - OTHER 4 4 [facility] DANIELA - 3 3 [facility]PATIEN [facility] EMERGENCY 23796 DANIELA 3 3 [facility] T VISIT HIGH/URGE NT SEVERITY EMERGENCY 78801 DANIELA 1 1 [facility] T VISIT LOW/MODER SEVERITY HOSPITAL DANIELA - 1 1 [facility]ENC[facility] 59039 DANIELA 0 0 [facility] DEPARTMEN INC T VISIT LOW/MODER SEVERITY HOSPITAL DANIELA - 0 0 [facility] OUTPATIEN INC T OFFICE 92915 MISAEL DOUGLAS, [facility] 9 HILARIO Jaswant HILARIO Jaswant T VISIT 15 MINUTES EMERGENCY 21917 DANIELA 9 9 [facility] T VISIT HIGH/URGE NT SEVERITY EMERGENCY 59111 JENNIFER GIL, DEPT 9 9 EMERGENCY [facility] VISIT SERVICES HIGH SEVERITY& ASSOCIATE THREAT S [facility] DANIELA - 9 9 [facility] OUTPATIEN INC T EMERGENCY 77121 JENNIFER GALAN, 9 9 [facility] T VISIT MODERATE ASSOCIATE SEVERITY S EMERGENCY 79887 DANIELA 9 9 [facility] T VISIT LIMITED/M [facility] DANIELA - 9 9 [facility] - 8 8 [facility] T EMERGENCY [id number] DANIELA 8 8 [facility] T VISIT HIGH/URGE NT SEVERITY EMERGENCY [id number] DANIELA 8 8 [facility] D[facility]EL[facility] - 8 8 [facility] T EMERGENCY [id number] DANIELA 8 8 [facility]M [facility] D[facility]EL[facility] - 8 8 [facility] T EMERGENCY [id number] DANIELA [place], 8 8 [facility] T VISIT PROF SERV HIGH/URGE NT SEVERITY [facility] DANIEL[facility] - 8 8 [facility] T
--- OUTSIDE RECORDS SUMMARY | 2016-12-21 19:35 | External Medical Summary Rpt ---
Author Author , BAHMAN RUGGIERO Address Unknown Phone [email or web address] Care Team Providers Care Test Administrator Name Role Phone HILARIO DOUGLAS, Unavailable Unavailable HILARIO DOUGLAS, AMARIS Unavailable Unavailable [facility] Unavailable Unavailable [facility] O, [facility] MACARENA FIORE Unavailable Unavailable JOSE FIORE, Unavailable Unavailable JOSE FIORE [facility], [facility] LEANDRO CHONG Unavailable Unavailable JR BRAVO ROE, Unavailable Unavailable JR BRAVO DURAN GAINEY Unavailable Unavailable LOUISA JERONIMO GIL, Unavailable Unavailable JERONIMO GIL [facility] Unavailable Unavailable INC, [facility] Unavailable Unavailable HOSPITAL P, [facility], Unavailable Unavailable [facility] Un[facility] Un[facility], [facility] Unavailable Unavailable MEDICAL G, [facility] CORBY HENDERSON DWI, CORBY Unavailable [...] PHYSICIANS, HYPERTENSIO PLLC N I252 OLD 10-28-2016 [facility] P R0602 SHORTNESS 10-28-2016 [facility] R071 CHEST PAIN 10-28-2016 [facility] ON [facility]ICI[facility], BREATHING PLLC R079 CHEST PAIN 10-28-2016 [facility] Z720 TOBACCO USE 10-28-2016 [facility] P Z8249 FAMILY HX 10-28-2016 [facility]HEMIC [facility] HRT DZ OTH INC DZ CIRC SYSTEM E785 HYPERLIPIDE 10-09-2016 [facility] MARIO [facility] UNSPECIFIED INC I119 HYPERTENSIV 10-09-2016 [facility] E HEART [facility] DISEASE INC WITHOUT HEART FAILURE I209 ANGINA 10-09-2016 [facility] PECT[facility]IS [facility] UNSPECIFIED INC I2510 ASHD [place] 10-09-2016 [facility] CORONARY [facility] ARTERY W/O INC ANGINA PECTORIS V37638 PINGUECULIT 02-24-2016 [facility] R5383 OTHER 12-21-2015 [facility] FATIGUE [facility] INC I208 OTHER FORMS 12-20-2015 [facility] OF ANGINA [facility] PECTORIS INC M1990 UNSPECIFIED 09-07-2015 [facility] OSTEOARTHRI GROUP TIS UNSPECIFIED SITE M545 LOW BACK 09-07-2015 [facility] PAIN PHYSICIANS GROUP [id number] OTHER LONG 09-07-2015 [facility] TERM [facility] CURRENT INC DRUG THERAPY I422 OTHER 07-08-2015 [facility] HYPERTROPHI [facility] C INC CARDIOMYOPA THY I5020 UNSPECIFIED 07-08-2015 [facility] SYSTOLIC [facility] CONGESTIVE INC HEART FAILURE 18418 UNSPEC HTN 01-04-2015 [facility] HE[facility] DISEASE CONSULTANTS WITHOUT O HEART FAIL 412 OLD 01-04-2015 [facility] MYOCARDIAL LAR INFARCTION CONSULTANTS O 97740 COR 01-04-2015 [facility] ATHEROSLERO LAR UNSPEC CONSULTANTS TYPE VESSEL O [place]/BRYANT T 4254 OTHER 01-04-2015 [facility] PRIMARY LAR CARDIOMYOPA CONSULTANTS MIGNON Blankenship 2724 OTHER AND 11-24-2014 [facility] UNSPECIFIED [facility] INC HYPERLIPIDE MARIO 4280 CONGESTIVE 11-24-2014 [facility] HEART [facility] FAILURE INC UNSPECIFIED 4019 UNSPECIFIED 10-20-2014 [facility] ESSENTIAL [facility] HYPERTENSIO INC N 4139 OTHER AND 10-20-2014 [facility] UNSPECIFIED [facility] ANGINA INC PECTORIS 496 CHRONIC 10-18-2014 [facility] PHYS[facility]IANS, OBSTRUCTION PLLC NEC 90454 ESOPHAGEAL 10-18-2014 [facility] P 42185 CHEST PAIN 10-18-2014 [facility] UNSPECIFIED PHYSICIANS, PLLC 65672 OTHER CHEST 10-18-2014 [facility] 7862 COUGH 09-13-2014 [facility] 89472 CORONARY 06-30-2014 [facility] [place] [facility] CORONARY ARTERY 15251 UNSPECIFIED 06-30-2014 [facility] HEART MEDICAL G FAILURE 4149 UNSPECIFIED 05-04-2014 [facility] CHRONIC PHYSICIANS ISCHEMIC GROUP HEART DISEASE 3674 PRESBYOPIA 03-12-2014 [facility] 82970 UNSPECIFIED 03-12-2014 [facility] 9409 UNSPECIFIED 03-05-2014 [facility] HYPOTHYROID INC ISM 7231 CERVICALGIA 02-12-2014 [facility] INC 7242 LUMBAGO 02-12-2014 [facility] INC 23031 DIAB W/O 02-04-2014 [facility] COMP TYPE [facility] II/UNS NOT INC STATED UNCNTRL 2859 UNSPECIFIED 02-04-2014 [facility] ANEMIA [facility] INC 60023 OSTEOARTHRO 08-19-2013 [facility] S UNSPEC PHYSICIANS WHETHER GROUP GEN/LOC UNSPEC SITE 0539 HERPES 06-10-2013 [facility] ZOSTER PHYSICIANS WITHOUT GROUP MENTION OF COMPLICATIO N 1101 DERMATOPHYT 06-01-2013 [facility] OSIS OF PHYSICIANS NAIL GROUP V5861 LONG-TERM 05-22-2013 [facility] (CURRENT) [facility] USE OF INC ANTICOAGULA NTS 99005 UNSPECIFIED 12-19-2010 [facility] ANKLE INC SPRAIN AND STRAIN 8830 OPEN WOUND 08-30-2009 [facility] FINGER [facility] WITHOUT INC MENTION COMPLICATIO N 06326 ASTHMA 02-04-2009 ARNEVETTE, UNSPECIFIED HILARIO W WITH STATUS ASTHMATICUS 7245 UNSPECIFIED 02-04-2009 MISAEL, BACKACHE HILARIO W 14981 ABDOMINAL 11-26-2008 JENNIFER PAIN, EMERGENCY UNSPECIFIED SERVICES SITE ASSOCIATES 00630 UNSPECIFIED 09-30-2008 [facility] DENTAL [facility]Y [facility] 95918 ACUTE 09-30-2008 [facility] GINGIVITIS [facility] PLAQUE INC INDUCED 5269 UNSPECIFIED 09-30-2008 JENNIFER DISEASE OF EMERGENCY [facility] 4660 ACUTE 04-09-2008 [facility] BRONCHITIS [facility] INC 2162 BENIGN 10-22-2007 [facility] NEOPLASM OF [facility] INC EAR&EXTERNA L AUDITORY CANAL 95875 ASTHMA, 09-25-2007 [facility] UNSPECIFIED [facility] , INC UNSPECIFIED STATUS 38246 OTHER 06-18-2007 [facility] [address] SHORTNESS 06-18-2007 [facility] PROF SERV Procedures Procedure [place] [address] DANIELA SUAREZ TROPONIN 7 [facility] QUANTITAT INC INC FRANCISCO BLOOD 53372 DANIELA SUAREZ COUNT 7 [facility] COMPLETE INC INC AUTO&[place] [address] DANIELA SUAREZ AMYLASE 7 [facility] INC INC CREATINE 14255 DANIELA SUAREZ KINASE MB 7 [facility] FRACTION INC INC ONLY CREATINE 08008 DANIELA DANIELA KINASE 7 [facility] [place] [place] [address] DANIELA DANIELA LIPASE 7 [facility] INC INC RADIOLOGI 92687 GITAWally MACARENA C 7 MEDICAL EXAMINATI IMAGING ON CHEST ASS SINGLE VIEW FRONTAL COMPREHEN 29595 DANIELA SUAREZ SIVE 7 [facility] METABOLIC INC INC PANEL ECG 49791 DANIELA SUAREZ ROUTINE 7 [facility] ECG INC INC W/LEAST 12 LDS TRCG ONLY W/O I&R ECG 38464 MARTÍN FRAIRE ROUTINE 7 PHYSICIAN U ECG S, PLLC W/LEAST 12 LDS I&R ONLY ECG 79706 DANIELA SUAREZ ROUTINE 7 [facility] ECG INC INC W/LEAST 12 LDS TRCG ONLY W/O I&R OPHTH 00489 [facility] 6 [facility] COMPRHNSV ESTAB PT 1/> BASIC 64101 DANIELA SUAREZ METABOLIC 6 [facility] PANEL INC INC CALCIUM TOTAL LIPID 61105 DANIELA SUAREZ PANEL 6 [facility] INC INC COLLECTIO 86073 DANIELA SUAREZ N VENOUS 6 [facility] BLOOD INC INC VENIPUNCT URE BLOOD 76515 DANIELA SUAREZ COUNT 6 [facility] COMPLETE INC INC AUTO&AUTO DIFRNTL WBC HEPATIC 11176 ADNIELA SUAREZ FUNCTION 6 [facility] PANEL INC INC ECG 95412 DANIELA SUAREZ ROUTINE 6 [facility] ECG INC INC W/LEAST 12 LDS TRCG ONLY W/O I&R ECG 47537 DANIELA SUAREZ ROUTINE 6 [facility] ECG INC INC W/LEAST 12 LDS TRCG ONLY W/O I&R DRUG TST G0477 DANIELA SUAREZ PRESUMP;C 6 [facility] PBL BEING INC INC READ DC OPT OBV ONLY ECG 67608 DANIELA SUAREZ ROUTINE 6 [facility] ECG INC INC W/LEAST 12 LDS TRCG ONLY W/O I&R ECG 18432 DANIELA SUAREZ ROUTINE 5 [facility] ECG INC INC W/LEAST 12 LDS TRCG ONLY W/O I&R ECG 70113 CARDIOVAS KARLA ROUTINE 5 CULAR MAT ECG CONSULTAN W/LEAST TS O 12 LDS I&R ONLY HEPATIC 01659 DANIELA SUAREZ FUNCTION 5 [facility] PANEL INC INC COLLECTIO 39887 DANIELA USAREZ N VENOUS 5 [facility] BLOOD INC INC VENIPUNCT URE BASIC 73511 DANIELA SUAREZ METABOLIC 5 [facility] PANEL INC INC CALCIUM TOTAL BLOOD 71739 DANIELA SUAREZ COUNT 5 [facility] COMPLETE INC INC AUTO&[place] [address] DANIELA SUAREZ THYROID 5 [facility] STIMULATI [place] [address] DANIELA SUAREZ FREE 5 [facility] THYROXINE INC INC LIPID 80026 DANIELA SUAREZ PANEL 5 [facility] INC INC ECG 87893 DANIELA SUAREZ ROUTINE 5 [facility] ECG INC INC W/LEAST 12 LDS TRCG ONLY W/O I&R ECG 74280 CARDIOVAS KARLA ROUTINE 5 CULAR MAT ECG CONSULTAN W/LEAST TS O 12 LDS I&R ONLY ECG 33956 CARDIOVAS KARLA ROUTINE 5 CULAR MAT ECG CONSULTAN W/LEAST TS O 12 LDS I&R ONLY ECG 46593 DANIELA SUAREZ ROUTINE 5 [facility] ECG INC INC W/LEAST 12 LDS TRCG ONLY W/O I&R RADIOLOGI 18618 [facility] C EXAM 5 MEDICAL MAGI CHEST 2 IMAGING VIEWS ASS FRONTAL&L ATERAL ECG 30205 DANIELA TAVAREZ JR ROUTINE 5 [facility] W/LEAST P 12 LDS I&R ONLY RADIOLOGI 04185 [facility] EXAM 5 MEDICAL MAGI CHEST 2 IMAGING VIEWS ASS FRONTAL&L ATERAL ECHO 16271 DANIELA SUAREZ TTHRC R-T 4 [facility] 2D INC INC W/WOM-MOD E COMPL SPEC&COLR D OPHTH 60092 [facility] 4 [facility] ANG XM&EVAL CENTER COMPRE NEW PT 1/> VST CYANOCOBA 68374 DANIELA SUAREZ LIZZIE 4 [facility] VITAMIN INC INC B-12 [place] [address] DANIELA SUAERZ THYROID 4 [facility] STIMULATI INC INC NG HORMONE TSH 3D 43573 DANIELA SUAREZ RENDERING 4 [facility] W/INTERP INC INC & POSTPROCE SS SUPERVISI ON RADEX 06053 DANIELA SUAREZ SPINE 4 [facility] LUMBOSACR INC INC AL MINIMUM 4 VIEWS MRI 07624 DANIELA SUAREZ SPINAL 4 [facility] CANAL INC INC LUMBAR W/O CONTRAST MATERIAL RADEX 92014 DANIELA SUAREZ SPINE 4 [facility] CERVICAL INC INC 4 OR 5 VIEWS RADIOLOGI 14893 DANIELA SUAREZ C EXAM 4 [facility] CHEST 2 INC INC VIEWS FRONTAL&[place] [address] DANIELA SUAREZ THYROXINE 4 [facility] TOTAL INC INC COMPREHEN 62740 DANIELA SUAREZ SIVE 4 [facility] METABOLIC INC INC PANEL CYANOCOBA 31468 DANIELA SUAREZ LIZZIE 4 [facility] VITAMIN INC INC B-12 [place] [address] DANIELA SUAREZ THYROID 4 [facility] STIMULATI INC INC NG HORMONE TSH COLLECTIO 26692 DANIELA SUAREZ N VENOUS 4 [facility] [place] [address] DANIELA SUAREZ FOLIC 4 [facility] ACID INC INC SERUM BLOOD 48422 DANIELA SUAREZ COUNT 4 [facility] COMPLETE INC INC AUTO&AUTO DIFRNTL WBC HEMOGLOBI 17469 DANIELA SUAREZ N 4 [facility] GLYCOSYLA INC INC GEMA A1C THERAPEUT 02998 [facility] IC 4 PHYSICIAN LOUISA PROPHYLAC S GROUP TIC/DX INJECTION SUBQ/IM INJECTION J1040 [facility] JEFFERY 4 PHYSICIAN [place] METHYLPRE S GROUP DNISOLONE ACETATE [address] [place] [address] DANIELA SUAREZ THYROXINE 4 [facility] TOTAL INC INC COMPREHEN 90448 DANIELA SUAREZ SIVE 4 [facility] METABOLIC INC INC PANEL HEMOGLOBI 58000 DANIELA SUAREZ N 4 [facility] GLYCOSYLA INC INC GMEA A1C BLOOD 46999 DANIELA SUAREZ COUNT 4 [facility] COMPLETE INC INC AUTO&AUTO DIFRNTL WBC LIPID 16767 [facility]ANIELA SUAREZ PANEL 4 [facility] [place] [address] [facility]ANIELA SUAREZ THYROID 4 [facility] STIMULATI INC INC NG HORMONE TSH CREATINE 84114 DANIELA SUAREZ KINASE MB 3 [facility] FRACTION INC INC ONLY BLOOD 22195 DANIELA SUAREZ COUNT 3 [facility] COMPLETE INC INC AUTO&[place] [address] DANIELA SUAREZ TROPONIN 3 [facility] QUANTITAT INC INC FRANCISCO CREATINE 43559 DANIELA SUAREZ KINASE 3 [facility] TOTAL INC INC COMPREHEN 46800 DANIELA SUAREZ SIVE 3 [facility] METABOLIC INC INC PANEL ECG 88644 DANIELA SUAREZ ROUTINE 3 [facility] ECG INC INC W/LEAST 12 LDS TRCG ONLY W/O I&R RADIOLOGI 35346 DANIELA SUAREZ C 3 [facility] EXAMINATI INC INC ON CHEST SINGLE VIEW FRONTAL RHYTHM 99072 DANIELA SUAREZ ECG 1-3 3 [facility] LEADS INC INC TRACING ONLY W/O I&R RADEX 97267 DANIELA SUAREZ ELBOW 1 [facility] COMPLETE INC INC MINIMUM 3 VIEWS RADEX ABD 97447 DANIELA SUAREZ COMPL 9 [facility] AQT ABD INC INC W/S/E/D VIEWS 1 [place] [address] DANIELA SUAREZ LIPASE 9 [facility] INC INC BLOOD 10067 DANIELA SUAREZ COUNT 9 [facility] COMPLETE INC INC AUTO&AUTO DIFRNTL WBC URNLS DIP 58832 D[facility]ELA SUAREZ 9 [facility] STICK/TAB INC INC [place] [address] DANIELA YEPEZON AMYLASE 9 [facility] INC INC COMPREHEN 01576 DANIELAWILLIAM SUAREZ SIVE 9 [facility] METABOLIC INC INC PANEL COMPREHEN 35360 DANIELA SUAREZ SIVE 8 [facility] METABOLIC INC INC PANEL URNLS DIP 93290 DANIELA DANIELA 8 [facility] STICK/TAB INC INC LET REAGENT AUTO MICROSCOP Y BLOOD 61733 DANIELA SUAREZ COUNT 8 [facility] COMPLETE INC INC AUTO&AUTO DIFRNTL WBC IAADI 61611 DANIELA SUAREZ INFLUENZA 8 [facility] B VIRUS INC INC IAADI 10352 DANIELA SUAREZ INFFLUENZ 8 [facility] [place] [address] DANIELA SUAREZ THER 8 [facility] PROPH/DX INC INC 1ST >1 HR THER 76075 DANIELA SUAREZ PROPH/DX 8 [facility] NJX EA INC INC SEQL IV PUSH SBST/DRUG RADIOLOGI 68541 Rodrigo BLAIR EXAM 8 MEDICAL JOSE CHEST 2 IMAGING VIEWS ASSOCIATE FRONTAL&L S ATERAL PRESSURIZ 30093 DANIELA SUAREZ ED/NONPRE 8 [facility] SSURIZED INC INC INHALATIO N TREATMENT PRESSURIZ 62120 DANIELA SUAREZ ED/NONPRE 8 [facility] SSURIZED INC INC INHALATIO N TREATMENT BASIC 31967 DANIELA SUAREZ METABOLIC 8 [facility] PANEL INC INC CALCIUM TOTAL RADIOLOGI 78128 DANIELA SUAREZ C 8 [facility] EXAMINATI INC INC ON CHEST SINGLE VIEW FRONTAL CREATINE 93453 DANIELA SUAREZ KINASE 8 [facility] [place] [address] DANIELA SUAREZ TROPONIN 8 [facility] QUANTITAT INC INC FRANCISCO BLOOD 97704 DANIELA SUAREZ COUNT 8 [facility] COMPLETE INC INC AUTO&AUTO DIFRNTL WBC CREATINE 35208 DANIELA SUAREZ KINASE MB 8 [facility] FRACTION INC INC ONLY Encounters Encounter Start End Date Code Location Performer Type Date [facility] DANIELA - 7 7 [facility] OUTPATIEN [facility] EMERGENCY 25431 MARTÍN FRAIRE DEPT 7 7 PHYSICIAN U VISIT S, [facility] HIGH SEVERITY& THREAT FUNJ EMERGENCY 01671 DANIELA [address] [facility] T VISIT HIGH/URGE NT SEVERITY [facility] DANIELA - 7 7 [facility] OUTPATIEN [facility] DANIELA - OTHER 6 6 [facility]ANIELA - 6 6 [facility] - 6 6 [facility] 88310 [facility] PHYSICIAN [place] T VISIT S GROUP 25 MINUTES [facility] DANIELA - OTHER 6 6 [facility]ANIELA - 6 6 [facility] OUTPATIEN [facility] DANIELA - 5 5 [facility] OUTPATIEN [facility] T OFFICE 71202 CARDIOVAS KARLA OUTPATIEN 5 5 CULAR [facility] T VISIT CONSULTAN 40 TS O MINUTES [facility] DANIELA - 5 5 [facility] OUTPATIEN [facility] DANIEAL - 5 5 [facility] OUTPATIEN [facility] T OFFICE 92951 CARDIOVAS KARLA OUTPATIEN 5 5 [facility]ULAR [facility] T VISIT CONSULTAN 25 TS O MINUTES HOSPITAL DANIELA - 5 5 [facility] OUTPATIEN [facility] T OFFICE 31644 CARDIOV[facility] KARLA OUTPATIEN 5 5 CULAR [facility] T VISIT CONSULTAN 40 TS O MINUTES EMERGENCY 80309 MARTÍN ROGER, 5 5 PHYSICIAN JR [place] DEPARTMEN S, [facility] T VISIT HIGH/URGE NT SEVERITY OFFICE 29685 [facility] FALLUJI OUTPATIEN 5 5 [facility] T VISIT MEDICAL 25 G MINUTES OFFICE 23924 [facility] JEFFERY OUTPATIEN 4 4 PHYSICIAN [place] T VISIT S GROUP 10 MINUTES HOSPITAL [facility]ANIELA - 4 4 [facility] HOSPITAL DANIELA - OTHER 4 4 [facility]ANIELA - 4 4 [facility] OUTPATIEN [facility] HOSPITAL DANIELA - 4 4 [facility] OUTPATIEN [facility] OFFICE 71207 [facility] JEFFERY OUTPATIEN 4 4 PHYSICIAN [place] T VISIT S GROUP 15 MINUTES OFFICE 60537 [facility] JEFFERY OUTPATIEN 4 4 PHYSICIAN [place] T VISIT S GROUP 15 MINUTES [facility] 26549 [facility] PHYSICIAN [place] T VISIT S GROUP 15 MINUTES HOSPITAL DANIELA - OTHER 4 4 [facility] DE[facility] DANIELA - 3 3 [facility] OUTPATIEN [facility] EMERGENCY 39602 DANIELA 3 3 [facility] T VISIT HIGH/URGE NT SEVERITY EMERGENCY 16315 DANIELA [address] [facility] T VISIT LOW/MODER SEVERITY HOSPITAL DANIELA - 1 1 [facility] EMERGENCY 10854 DANIELA 0 0 [facility] DEPARTMEN INC T VISIT LOW/MODER SEVERITY HOSPITAL DANIELA - 0 0 [facility] OUTPATIEN INC T OFFICE 69680 MISAEL DOUGLAS, [facility] 9 HILARIO Jaswant HILARIO Jaswant T VISIT 15 MINUTES EMERGENCY 53443 DANIELA 9 9 [facility] VISIT HIGH/URGE NT SEVERITY EMERGENCY 75032 JENNIFER GIL, DEPT 9 9 EMERGENCY [facility] VISIT SERVICES HIGH SEVERITY& ASSOCIATE THREAT S [facility] HOSPITAL DANIELA - 9 9 [facility] OUTPATIEN INC T EMERGENCY 20915 JENNIFER GALAN, 9 9 [facility] T VISIT MODERATE ASSOCIATE SEVERITY S EMERGENCY 65585 DANIELA 9 9 [facility] INC T VISIT LIMITED/M [facility] DANIELA - 9 9 [facility] OUTPATIEN [facility] HOSPITAL DANIELA - 8 8 [facility] OUTPATIEN INC T EMERGENCY 89790 DANIELA 8 8 [facility] INC T VISIT HIGH/URGE NT SEVERITY EMERGENCY 49268 D[facility]A 8 8 [facility] V[facility] DANIELA - 8 8 [facility] T EMERGENCY [id number] [facility] 8 8 [facility] V[facility] - 8 8 [facility] T EMERGENCY [id number] DANIELA [place], 8 8 [facility] T VISIT PROF SERV HIGH/URGE NT SEVERITY [facility] - 8 8 [facility] T
== END 2016-12-19 11:00 | disposition home or self-care (01) ==
LOC: ER 08:21
PROVIDERS: Emergency Medicine
DX: H70.90 Unspecified mastoiditis, unspecified ear (principal); I10 Essential (primary) hypertension; Z72.0 Tobacco use

== ENCOUNTER → 2017-03-01 | Outpatient (CLI) | payer MEDICARE, MEDICAID ==
[~2017-03-01] MED LIST changes: +AMITRIPTYLINE 225 MG PO; +GABAPENTIN100 MG PO; +LEVAQUIN500 MG PO; +LEVOTHYROXIN0.025 M1 PO; +OMEPRAZOLE20 MG PO
--- NOTE | 2017-03-01 14:04 | RADIOLOGY REPORT PS360 ---
PROCEDURE: 2-D M-mode and color Doppler study INDICATIONS FOR THE TEST: Chest pain X COPD Heart Murmur Tobacco SmokingX Palpitations Fatigue Syncope Edema HypertensionXDiabetes Mellitus Rheumatic Fever SOBXDOE Obesity HyperlipidemiaX Family History HD Additional History CAD PATIENT INFORMATION HEIGHT: 69 WEIGHT:173 GENDER: Male B/P:147/90 2-D/M-MODE INTERPRETATION: 2-D MEASUREMENTS OBSERVED VALUES IN CMS Right Ventricular Dimension (RVDd) 1.2 Interventricular Septum (Thickness)(IVsd) .9 Left Ventricular Internal Dimensions(LVIDd) 5.6 Left Ventricular Posterior Wall (Thickness)(LVPWd) 1.0 Aortic Root 3.0 Aortic Cusp Separation 1.9 Left Atrial Dimensions (LAD) 3.4 2D 1. Left atrium is mildly enlarged, left ventricle is normal size, there is mild concentric left ventricular hypertrophy present, there is reduced left ventricular systolic function, visually estimated ejection fraction approximately 40%, there is marked hypokinesis involving mid to distal septum, anterior and anteroapical wall. 2. The right atrium and right ventricle are normal size and contractility. 3. The aortic valve is minimally thickened and fibrosed. 4. The mitral and tricuspid valve leaflets are minimally thickened. 5. The pulmonic valve is poorly visualized. 6. No significant pericardial effusion noted. DOPPLER INTERROGATION: Doppler interrogation of the aortic, mitral and tricuspid valvular presence of mild mitral and tricuspid regurgitation, tricuspid regurgitant jet velocity is insufficient for calculation of the right ventricular systolic pressure, grade 1 diastolic dysfunction seen without tissue Doppler evidence of raised left atrial pressure. CONCLUSION: 1. Mildly enlarged left atrium, normal left ventricle size, mild concentric left ventricular hypertrophy present, there is reduced left ventricular systolic function visually estimated ejection fraction 40% with multiple segmental wall motion abnormalities described above. Grade 1 diastolic dysfunction seen without tissue Doppler evidence of raised left atrial pressure. 2. Mild mitral and tricuspid regurgitation. 3. No significant pericardial effusion noted.
== END ==
LOC: RT 11:46
DX: I20.8 Other forms of angina pectoris (principal); I25.10 Atherosclerotic heart disease of native coronary artery without angina pectoris; I11.9 Hypertensive heart disease without heart failure; E78.5 Hyperlipidemia, unspecified; Z72.0 Tobacco use